=== PATIENT | female | born 1955 | race Caucasian/White ===

== ENCOUNTER 2017-01-24 12:36 | Observation (INO) | payer OTHER, MEDICAID ==
[~2017-01-24] VITALS: Ht 154.9 cm; Wt 62.8 kg
[~2017-01-24 12:36] MED LIST: ANT12.5 PO; APAP/HYDROCODON1 T13 PO; BACTRIM DS1 TAB PO; CLEOCIN HCL150 MG PO; CLINDAMYCIN HC300 MG PO; COL100 PO; COL250 PO; FERG PO; FUROSEMIDE80 MG PO; GLYBURIDE5 MG PO; HYDROCHLOROTHIA25 MG PO; HYDROCODONE/ACE1 TA2 PO; IBUPROFEN400 MG PO; JANUVIA100 M1 PO; LABETALOL HYDR100 MG PO; LAC PO; LEVAQUIN500 MG PO; LIPI10 PO; LIPITOR20 MG PO; NEPHRO-VITE VITA1 EA PO; NEU300 PO; NEURONTIN100 MG PO; NOR10 PO; NOR10T PO; NORCO1 TA2 PO; SIMVASTATIN20 M1 PO; VITAMIN D2 PO; VITAMIN D22000 I1 PO; VITC PO; ZOFRAN ODT8 MG PO
[2017-01-24 15:30] LABS: UA SPECIFIC GRAVITY 1.015 (1.005-1.035); microscopic required? YES; urine erythrocyte 1+ (NEGATIVE)
[2017-01-24] MEDS ORDERED: JANUVIA100 M1 PO (15:47)
[2017-01-24 15:51] LABS: BASOPHIL % 0.5 % (0-2); PLATELET COUNT 165 x10^3mcL (130-400)
[2017-01-24 15:52] LABS: RED CELL DISTRIBUTION WIDTH 15.2 % (11.5-14.5)
[2017-01-24 15:59] LABS: CARBON DIOXIDE 27.4 mmol/L (21-32); CK-MB 2.8 ng/mL (0-3.6)
[2017-01-24 16:00] LABS: ALBUMIN 1.3 g/dL (3.4-5.0); CREATININE SERUM 3.7 mg/dL (0.6-1.0); TOTAL PROTEIN, SERUM 6.1 g/dL (6.4-8.2)
[2017-01-24 16:01] LABS: BILIRUBIN TOTAL 0.2 mg/dL (0.20-1.00); CALCIUM 7.7 mg/dL (8.5-10.1)
[2017-01-24 16:59] VITALS: BP 161/69
[2017-01-24 17:04] VITALS: Ht 154.9 cm; Wt 62.8 kg
[2017-01-24 17:22] LABS: CHOLESTEROL/HDL RATIO 2.9
[2017-01-24 17:30] LABS: FREE T4 1.2 ng/dL (0.76-1.46); FREE THYROXINE INDEX 2.5 ug/dL (1.4-4.5); T4(THYROXINE) 8.1 ug/dL (4.7-13.3)
[2017-01-24 20:09] LABS: T3 TOTAL 0.93 ng/mL
[2017-01-24 21:53] VITALS: BP 162/68
[2017-01-25 05:58] VITALS: BP 124/57
[2017-01-25 06:37] LABS: CALCIUM 7.3 mg/dL (8.5-10.1); CARBON DIOXIDE 25.6 mmol/L (21-32); CREATININE SERUM 3.9 mg/dL (0.6-1.0); MAGNESIUM 1.9 mg/dL (1.8-2.4); PHOSPHOROUS 4.8 mg/dL (2.5-4.9); POTASSIUM SERUM 3.5 mmol/L (3.5-5.1)
[2017-01-25 06:56] LABS: BASOPHIL % 0.8 % (0-2); PLATELET COUNT 150 x10^3mcL (130-400)
[2017-01-25 09:45] VITALS: BP 149/56
[2017-01-25] MEDS ORDERED: NEU300 PO (10:11)
[2017-01-25] MEDS ORDERED: NORCO1 TA2 PO (10:11)
[2017-01-25 10:32] VITALS: BP 149/56
== END 2017-01-25 11:28 | disposition home or self-care (01) | DRG 299 ==
LOC: ED 12:36 → DU 15:31
PROVIDERS: Emergency Medicine; Internal Medicine Nephrology; ADMIT Family Medicine
DX: I70.235 Atherosclerosis of native arteries of right leg with ulceration of other part of foot (principal); I50.43 Acute on chronic combined systolic (congestive) and diastolic (congestive) heart failure; E43 Unspecified severe protein-calorie malnutrition; N18.6 End stage renal disease; N17.0 Acute kidney failure with tubular necrosis; I13.2 Hypertensive heart and chronic kidney disease with heart failure and with stage 5 chronic kidney disease, or end stage renal disease; L97.411 Non-pressure chronic ulcer of right heel and midfoot limited to breakdown of skin; L97.819 Non-pressure chronic ulcer of other part of right lower leg with unspecified severity; I83.018 Varicose veins of right lower extremity with ulcer other part of lower leg; I70.238 Atherosclerosis of native arteries of right leg with ulceration of other part of lower leg; L97.519 Non-pressure chronic ulcer of other part of right foot with unspecified severity; I87.8 Other specified disorders of veins; I36.1 Nonrheumatic tricuspid (valve) insufficiency; E87.6 Hypokalemia; E11.9 Type 2 diabetes mellitus without complications; Z68.26 Body mass index [BMI] 26.0-26.9, adult; Z99.2 Dependence on renal dialysis
CPT/HCPCS: 83880; 84439; G0378; G0480; J1170; J3480; J3490; J7030; Q0092

== ENCOUNTER 2017-01-29 22:09 | Emergency (ER) | payer OTHER, MEDICAID ==
[2017-01-30 00:07] VITALS: BP 139/63
== END 2017-01-30 00:07 | disposition home or self-care (01) ==
LOC: ED 22:09
DX: L97.519 Non-pressure chronic ulcer of other part of right foot with unspecified severity (principal); E78.00 Pure hypercholesterolemia, unspecified; G62.9 Polyneuropathy, unspecified; N28.9 Disorder of kidney and ureter, unspecified; I10 Essential (primary) hypertension; E11.9 Type 2 diabetes mellitus without complications

== ENCOUNTER 2017-02-07 18:01 | Emergency (ER) | payer OTHER, MEDICAID ==
[~2017-02-07] VITALS: Ht 152.4 cm; Wt 61.7 kg
[2017-02-07] MEDS ORDERED: KEFLEX250 M1 PO (20:26)
[2017-02-07 21:33] LABS: BASOPHIL % 0.2 % (0-2); PLATELET COUNT 261 x10^3mcL (130-400)
[2017-02-07 21:55] LABS: ALBUMIN 1.5 g/dL (3.4-5.0); BILIRUBIN TOTAL 0.23 mg/dL (0.20-1.00); C REACTIVE PROTEIN 7.2 mg/dL (<=0.9); CARBON DIOXIDE 26.8 mmol/L (21-32); POTASSIUM SERUM 3.2 mmol/L (3.5-5.1); TOTAL PROTEIN, SERUM 7.1 g/dL (6.4-8.2)
[2017-02-07 21:57] LABS: CREATININE SERUM 4.4 mg/dL (0.6-1.0)
[2017-02-07 22:01] LABS: CK-MB 2.4 ng/mL (0-3.6)
[2017-02-07 22:05] LABS: FREE T4 1.48 ng/dL (0.76-1.46); FREE THYROXINE INDEX 3.4 ug/dL (1.4-4.5); T4(THYROXINE) 9.8 ug/dL (4.7-13.3)
[2017-02-07 22:11] LABS: T3 TOTAL 1.02 ng/mL
[2017-02-07 22:25] VITALS: BP 165/76
[2017-02-08 00:09] LABS: ERYTHROCYTE SED RATE > 120 mm/hr (0-30)
== END 2017-02-07 22:25 | disposition home or self-care (01) ==
LOC: ED 18:01
PROVIDERS: Specialist
DX: L03.115 Cellulitis of right lower limb (principal); I73.9 Peripheral vascular disease, unspecified; E78.5 Hyperlipidemia, unspecified; I12.9 Hypertensive chronic kidney disease with stage 1 through stage 4 chronic kidney disease, or unspecified chronic kidney disease; E11.22 Type 2 diabetes mellitus with diabetic chronic kidney disease; N18.9 Chronic kidney disease, unspecified; G62.9 Polyneuropathy, unspecified
CPT/HCPCS: 83880; 84439; J1885; J2405; J3010; Q0092

== ENCOUNTER 2017-03-22 09:57 | Day surgery (SDC) | payer OTHER, MEDICAID ==
[2017-03-16 10:41] LABS: BILIRUBIN TOTAL 0.3 mg/dL (0.20-1.00); CARBON DIOXIDE 31.6 mmol/L (21-32); CREATININE SERUM 3.2 mg/dL (0.6-1.0); PHOSPHOROUS 3.4 mg/dL (2.5-4.9); POTASSIUM SERUM 3.1 mmol/L (3.5-5.1); TOTAL PROTEIN, SERUM 6.2 g/dL (6.4-8.2); URIC ACID 3.3 mg/dL (2.6-6.0)
[2017-03-16 10:43] LABS: ALBUMIN 1.4 g/dL (3.4-5.0)
[2017-03-16 11:01] LABS: BASOPHIL % 0.4 % (0-2); PLATELET COUNT 215 x10^3mcL (130-400)
[2017-03-16 11:05] LABS: RED CELL DISTRIBUTION WIDTH 15.7 % (11.5-14.5)
[~2017-03-22] VITALS: Ht 149.9 cm; Wt 76.7 kg
[~2017-03-22 09:57] MED LIST changes: +KEFLEX250 M1 PO
[2017-03-22 10:56] VITALS: BP 170/79
[2017-03-22 15:46] VITALS: BP 148/74
== END 2017-03-22 15:30 | disposition home or self-care (01) ==
LOC: DS 09:57 → OR 12:30 → DS 15:30
PROVIDERS: Surgery
PROC: 03180ZF Bypass Left Brachial Artery to Lower Arm Vein, Open Approach (ICD-10-PCS; principal; 2017-03-22 12:00)
DX: N18.6 End stage renal disease (principal); I10 Essential (primary) hypertension; E11.9 Type 2 diabetes mellitus without complications; I50.43 Acute on chronic combined systolic (congestive) and diastolic (congestive) heart failure; I07.1 Rheumatic tricuspid insufficiency; Z99.2 Dependence on renal dialysis
CPT/HCPCS: J0690; J1644; J2001; J3010

== ENCOUNTER → 2017-07-16 | Outpatient (CLI) | payer OTHER, MEDICAID ==
[~2017-07-16] VITALS: Ht 154.9 cm; Wt 57.1 kg
[2017-07-16 12:02] LABS: BASOPHIL % 0.2 % (0-2); PLATELET COUNT 205 x10^3mcL (130-400)
[2017-07-16 12:03] LABS: RED CELL DISTRIBUTION WIDTH 16.1 % (11.5-14.5)
[2017-07-16 12:55] LABS: BILIRUBIN TOTAL 0.2 mg/dL (0.20-1.00); CALCIUM 8.1 mg/dL (8.5-10.1); CARBON DIOXIDE 29.9 mmol/L (21-32); POTASSIUM SERUM 4.6 mmol/L (3.5-5.1)
[2017-07-16 14:48] LABS: ALBUMIN 1.9 g/dL (3.4-5.0); CREATININE SERUM 5.6 mg/dL (0.6-1.0)
== END | disposition home or self-care (01) ==
LOC: LB 11:30 → DS 07-19 12:30 → OR 07-19 12:30 → DS 08-09 09:04 → LB 08-09 11:00 → DS 08-09 11:00 → EDSTATUS 08-09 12:30 → DS 08-09 12:30 → LB 08-09 12:30
PROVIDERS: Surgery
DX: N18.6 End stage renal disease (principal)

== ENCOUNTER → 2017-08-09 | Day surgery (SDC) | payer OTHER, MEDICAID ==
[~2017-08-09] VITALS: Ht 154.9 cm; Wt 57.1 kg
[~2017-08-09] MED LIST changes: +NORCO1 TA1 PO; +NOVAPLUS ZOSYN50 M1 IV; +TIROSINT25 MC1 PO
[2017-08-09 10:20] VITALS: BP 134/63
[2017-08-09 10:39] LABS: BASOPHIL % 0.6 % (0-2); PLATELET COUNT 268 x10^3mcL (130-400); RED CELL DISTRIBUTION WIDTH 14.3 % (11.5-14.5)
[2017-08-09 10:53] LABS: BILIRUBIN TOTAL 0.21 mg/dL (0.20-1.00); CALCIUM 8.7 mg/dL (8.5-10.1); CARBON DIOXIDE 28.9 mmol/L (21-32); PHOSPHOROUS 5.5 mg/dL (2.5-4.9); POTASSIUM SERUM 3.8 mmol/L (3.5-5.1); TOTAL PROTEIN, SERUM 7.1 g/dL (6.4-8.2)
[2017-08-09 11:05] LABS: CREATININE SERUM 5.1 mg/dL (0.6-1.0)
[2017-08-09 14:23] VITALS: BP 123/60
== END | disposition home or self-care (01) ==
LOC: DS 09:31
PROVIDERS: Surgery
PROC: 03180ZD Bypass Left Brachial Artery to Upper Arm Vein, Open Approach (ICD-10-PCS; principal; 2017-08-09 11:00)
DX: I12.0 Hypertensive chronic kidney disease with stage 5 chronic kidney disease or end stage renal disease (principal); N18.6 End stage renal disease; E11.9 Type 2 diabetes mellitus without complications; E11.51 Type 2 diabetes mellitus with diabetic peripheral angiopathy without gangrene; E11.40 Type 2 diabetes mellitus with diabetic neuropathy, unspecified; E03.9 Hypothyroidism, unspecified
CPT/HCPCS: J0690; J1644; J1815; J2001; J2405; J2704; J3010; J3490; J7030

== ENCOUNTER 2017-08-18 12:15 | Inpatient (IN) | payer OTHER, MEDICAID ==
[~2017-08-18] VITALS: Ht 154.9 cm; Wt 55.8 kg
[~2017-08-18 12:15] MED LIST changes: -NORCO1 TA1 PO; -NOVAPLUS ZOSYN50 M1 IV; -TIROSINT25 MC1 PO
[2017-08-18 16:24] LABS: BASOPHIL % 0.1 % (0-2); PLATELET COUNT 195 x10^3mcL (130-400)
[2017-08-18 16:33] LABS: CALCIUM 8.1 mg/dL (8.5-10.1); CARBON DIOXIDE 30.7 mmol/L (21-32); CREATININE SERUM 2.9 mg/dL (0.6-1.0); POTASSIUM SERUM 3.3 mmol/L (3.5-5.1)
[2017-08-18 16:36] LABS: RED CELL DISTRIBUTION WIDTH 14.6 % (11.5-14.5)
[2017-08-18 16:38] LABS: BILIRUBIN TOTAL 0.2 mg/dL (0.20-1.00); TOTAL PROTEIN, SERUM 7.2 g/dL (6.4-8.2)
[2017-08-18 16:42] LABS: ALBUMIN 1.8 g/dL (3.4-5.0)
[2017-08-18] MEDS ORDERED: TIROSINT25 MC1 PO (16:55)
[2017-08-18 18:11] VITALS: BP 104/47
[2017-08-18 19:48] LABS: T3 TOTAL 0.55 ng/mL
[2017-08-18 22:08] VITALS: BP 125/46
[2017-08-18 22:24] LABS: FREE T4 1.41 ng/dL (0.76-1.46); T4(THYROXINE) 9.2 ug/dL (4.7-13.3)
[2017-08-19 02:42] LABS: CHOLESTEROL/HDL RATIO 3.5; MAGNESIUM 2.3 mg/dL (1.8-2.4); PHOSPHOROUS 3.2 mg/dL (2.5-4.9)
[2017-08-19 05:42] VITALS: BP 134/49
[2017-08-19 06:05] LABS: BASOPHIL % 0.3 % (0-2); PLATELET COUNT 192 x10^3mcL (130-400)
[2017-08-19 06:06] LABS: CARBON DIOXIDE 31.5 mmol/L (21-32); CREATININE SERUM 3.9 mg/dL (0.6-1.0); POTASSIUM SERUM 3.3 mmol/L (3.5-5.1)
[2017-08-19 06:30] LABS: RED CELL DISTRIBUTION WIDTH 14.8 % (11.5-14.5)
[2017-08-19 09:25] VITALS: BP 103/56
[2017-08-19 12:14] LABS: UA SPECIFIC GRAVITY 1.015 (1.005-1.035); microscopic required? YES; urine erythrocyte 1+ (NEGATIVE)
[2017-08-19 13:51] VITALS: BP 127/60
[2017-08-19 17:30] VITALS: BP 139/61
[2017-08-19 21:52] VITALS: BP 129/73
[2017-08-20 05:23] VITALS: BP 152/54
[2017-08-20 06:39] LABS: BASOPHIL % 0.1 % (0-2); PLATELET COUNT 184 x10^3mcL (130-400)
[2017-08-20 07:02] LABS: CARBON DIOXIDE 26.3 mmol/L (21-32); POTASSIUM SERUM 3.8 mmol/L (3.5-5.1)
[2017-08-20 07:04] LABS: CREATININE SERUM 5.5 mg/dL (0.6-1.0)
[2017-08-20 07:05] LABS: RED CELL DISTRIBUTION WIDTH 14.7 % (11.5-14.5)
[2017-08-20 10:04] VITALS: BP 126/62
[2017-08-20 13:52] VITALS: BP 145/63
[2017-08-20 17:59] VITALS: BP 119/52
[2017-08-20 20:30] VITALS: BP 120/56
[2017-08-21 05:32] VITALS: BP 137/57
[2017-08-21 06:24] LABS: CALCIUM 8.2 mg/dL (8.5-10.1); CARBON DIOXIDE 23.7 mmol/L (21-32); MAGNESIUM 2.4 mg/dL (1.8-2.4); PHOSPHOROUS 5.4 mg/dL (2.5-4.9); POTASSIUM SERUM 4.6 mmol/L (3.5-5.1)
[2017-08-21 06:26] LABS: CREATININE SERUM 6.6 mg/dL (0.6-1.0)
[2017-08-21 06:29] LABS: BASOPHIL % 0.3 % (0-2); PLATELET COUNT 207 x10^3mcL (130-400)
[2017-08-21 06:43] LABS: RED CELL DISTRIBUTION WIDTH 14.7 % (11.5-14.5)
[2017-08-21 08:45] VITALS: BP 136/56
[2017-08-21 13:54] LABS: rbc morphology (normal/abnorm) ABNORMAL (NORMAL)
[2017-08-21 14:56] LABS: PLATELET COUNT 194 x10^3mcL (130-400)
[2017-08-21 15:04] LABS: RED CELL DISTRIBUTION WIDTH 14.6 % (11.5-14.5)
[2017-08-21 16:01] LABS: BAND NEUTROPHIL 6 % (0-10); METAMYELOCTE 2 % (0-2); MONOCYTE 3 % (0-7); SEGMENTED NEUTROPHILS 71 % (37-75)
[2017-08-21 16:03] LABS: rbc morphology (normal/abnorm) ABNORMAL (NORMAL)
[2017-08-21 19:41] LABS: PLATELET COUNT 142 x10^3mcL (130-400)
[2017-08-21 19:44] LABS: RED CELL DISTRIBUTION WIDTH 19.1 % (11.5-14.5)
[2017-08-21 20:57] LABS: BAND NEUTROPHIL 5 % (0-10); METAMYELOCTE 3 % (0-2); MONOCYTE 3 % (0-7); SEGMENTED NEUTROPHILS 85 % (37-75)
[2017-08-21 20:59] LABS: rbc morphology (normal/abnorm) ABNORMAL (NORMAL)
[2017-08-21 21:00] LABS: PLATELET MORPHOLOGY LARGE PLATELET SEEN
[2017-08-21 21:32] VITALS: BP 111/59
[2017-08-22] VITALS (7 sets, daily range): BP systolic 105–149; BP diastolic 33–65; Ht 154.9 cm; Wt 55.8 kg
[2017-08-22 06:10] LABS: BASOPHIL % 0.1 % (0-2); PLATELET COUNT 164 x10^3mcL (130-400); RED CELL DISTRIBUTION WIDTH 19.5 % (11.5-14.5)
[2017-08-22 06:20] LABS: CALCIUM 7.3 mg/dL (8.5-10.1); CARBON DIOXIDE 29.9 mmol/L (21-32); CREATININE SERUM 3.6 mg/dL (0.6-1.0); MAGNESIUM 1.8 mg/dL (1.8-2.4); PHOSPHOROUS 4.8 mg/dL (2.5-4.9); POTASSIUM SERUM 3.7 mmol/L (3.5-5.1)
[2017-08-23 05:45] VITALS: BP 135/53
[2017-08-23 07:08] LABS: BASOPHIL % 0.1 % (0-2); PLATELET COUNT 201 x10^3mcL (130-400)
[2017-08-23 07:10] LABS: RED CELL DISTRIBUTION WIDTH 20.9 % (11.5-14.5)
[2017-08-23 07:21] LABS: CALCIUM 7.5 mg/dL (8.5-10.1); CARBON DIOXIDE 27.3 mmol/L (21-32); PHOSPHOROUS 5.3 mg/dL (2.5-4.9); POTASSIUM SERUM 3.6 mmol/L (3.5-5.1)
[2017-08-23 07:27] LABS: CREATININE SERUM 4.9 mg/dL (0.6-1.0)
[2017-08-23 07:51] LABS: ovalocyte/elliptocyte 1+; rbc morphology (normal/abnorm) ABNORMAL (NORMAL)
[2017-08-23 09:06] VITALS: BP 137/34
[2017-08-23 16:38] VITALS: BP 92/22
[2017-08-23 16:52] VITALS: BP 121/51
[2017-08-23 21:00] VITALS: BP 121/51
[2017-08-24 05:17] VITALS: BP 132/57
[2017-08-24 08:09] LABS: CALCIUM 7.4 mg/dL (8.5-10.1); CARBON DIOXIDE 30.5 mmol/L (21-32); MAGNESIUM 1.8 mg/dL (1.8-2.4); PHOSPHOROUS 4.3 mg/dL (2.5-4.9); POTASSIUM SERUM 3.7 mmol/L (3.5-5.1)
[2017-08-24 08:13] LABS: BASOPHIL % 0 % (0-2); PLATELET COUNT 201 x10^3mcL (130-400); RED CELL DISTRIBUTION WIDTH 19.9 % (11.5-14.5)
[2017-08-24 08:26] LABS: CREATININE SERUM 4.1 mg/dL (0.6-1.0)
[2017-08-24 10:15] VITALS: BP 109/53
[2017-08-24] MEDS ORDERED: NOVAPLUS ZOSYN50 M1 IV (14:24)
[2017-08-24] MEDS ORDERED: NORCO1 TA1 PO (14:24)
[2017-08-24 17:15] VITALS: BP 144/59
[2017-08-24 18:23] VITALS: BP 142/60
[2017-08-24 20:51] VITALS: BP 124/59
[2017-08-25 05:32] VITALS: BP 123/55
[2017-08-25 07:02] LABS: BASOPHIL % 0.4 % (0-2); PLATELET COUNT 235 x10^3mcL (130-400)
[2017-08-25 07:08] LABS: RED CELL DISTRIBUTION WIDTH 20.1 % (11.5-14.5)
[2017-08-25 07:09] LABS: rbc morphology (normal/abnorm) ABNORMAL (NORMAL)
[2017-08-25 07:17] LABS: CALCIUM 7.5 mg/dL (8.5-10.1); CARBON DIOXIDE 29.5 mmol/L (21-32); PHOSPHOROUS 4.6 mg/dL (2.5-4.9); POTASSIUM SERUM 4.2 mmol/L (3.5-5.1)
[2017-08-25 07:33] LABS: CREATININE SERUM 5.1 mg/dL (0.6-1.0)
[2017-08-25 08:45] VITALS: BP 160/70
[2017-08-25 09:45] VITALS: BP 117/56
[2017-08-25 16:47] VITALS: BP 123/52
[2017-08-25 20:52] VITALS: BP 133/54
[2017-08-26 06:20] LABS: BASOPHIL % 0.2 % (0-2); PLATELET COUNT 257 x10^3mcL (130-400)
[2017-08-26 06:41] VITALS: BP 149/66
[2017-08-26 07:10] LABS: RED CELL DISTRIBUTION WIDTH 20.1 % (11.5-14.5)
[2017-08-26 07:11] LABS: rbc morphology (normal/abnorm) ABNORMAL (NORMAL)
[2017-08-26] MEDS ORDERED: BAY PO (08:48)
[2017-08-26] MEDS ORDERED: PRO10I SQ (08:48)
[2017-08-26] MEDS ORDERED: HUMULIN R100 U/1 M1 SC (08:48)
[2017-08-26] MEDS ORDERED: LAC PO (08:48)
[2017-08-26] MEDS ORDERED: BG FS (08:48)
[2017-08-26] MEDS ORDERED: ZOFI IV (08:48)
[2017-08-26] MEDS ORDERED: APAP/HYDROCODON1 T13 PO (08:54)
[2017-08-26] MEDS ORDERED: ZOSYN2.25 GM/50 IV (08:54)
[2017-08-26 09:48] VITALS: BP 128/58
[2017-08-26 09:52] LABS: CARBON DIOXIDE 30.3 mmol/L (21-32); POTASSIUM SERUM 3.7 mmol/L (3.5-5.1)
[2017-08-26 10:20] VITALS: BP 128/58
== END 2017-08-26 11:30 | DRG 853 ==
LOC: ED 12:15 → IC 16:54 → DU 16:54 → MU 16:54 → DU 17:52 → MU 08-20 14:32 → IC 08-21 14:45 → DU 08-22 14:35 → MU 08-23 06:46
PROVIDERS: Emergency Medicine; Family Medicine; Family Medicine Sports Medicine; Nutritionist Nutrition, Education; ADMIT Student in an Organized Health Care Education/Training Program
PROC: 0QBL0ZZ Excision of Right Tarsal, Open Approach (ICD-10-PCS; principal; 2017-08-21 09:00)
DX: A41.9 Sepsis, unspecified organism (principal); E43 Unspecified severe protein-calorie malnutrition; N17.0 Acute kidney failure with tubular necrosis; N18.6 End stage renal disease; R57.1 Hypovolemic shock; L97.414 Non-pressure chronic ulcer of right heel and midfoot with necrosis of bone; L03.115 Cellulitis of right lower limb; D68.69 Other thrombophilia; E87.1 Hypo-osmolality and hyponatremia; I12.0 Hypertensive chronic kidney disease with stage 5 chronic kidney disease or end stage renal disease; M86.8X7 Other osteomyelitis, ankle and foot; E11.621 Type 2 diabetes mellitus with foot ulcer; R65.20 Severe sepsis without septic shock; E11.51 Type 2 diabetes mellitus with diabetic peripheral angiopathy without gangrene; E11.42 Type 2 diabetes mellitus with diabetic polyneuropathy; E11.65 Type 2 diabetes mellitus with hyperglycemia; Z99.2 Dependence on renal dialysis; E87.6 Hypokalemia; E83.39 Other disorders of phosphorus metabolism; E87.8 Other disorders of electrolyte and fluid balance, not elsewhere classified; E03.9 Hypothyroidism, unspecified; I36.1 Nonrheumatic tricuspid (valve) insufficiency; E78.1 Pure hyperglyceridemia; B37.3 Candidiasis of vulva and vagina; D63.1 Anemia in chronic kidney disease; I27.20 Pulmonary hypertension, unspecified
CPT/HCPCS: 83880; 84439; 87804; 94150; C1751; J0330; J0696; J0885-EC; J1170; J1642; J1644; J1815; J2250; J2270; J2405; J2543; J2704; J3010; J3370; J3490; J7030; J7040; J7050; P9016; P9045; Q0092

== ENCOUNTER 2017-10-11 09:12 | Day surgery (SDC) | payer OTHER, MEDICAID ==
[2017-10-08 10:46] LABS: BASOPHIL % 0.3 % (0-2); PLATELET COUNT 285 x10^3mcL (130-400)
[2017-10-08 11:03] LABS: BILIRUBIN TOTAL 0.3 mg/dL (0.20-1.00); CALCIUM 8.3 mg/dL (8.5-10.1); CARBON DIOXIDE 27.8 mmol/L (21-32); PHOSPHOROUS 7.1 mg/dL (2.5-4.9); POTASSIUM SERUM 4.3 mmol/L (3.5-5.1); TOTAL PROTEIN, SERUM 7.2 g/dL (6.4-8.2); URIC ACID 4.3 mg/dL (2.6-6.0)
[2017-10-08 11:11] LABS: ALBUMIN 1.9 g/dL (3.4-5.0); CREATININE SERUM 5.3 mg/dL (0.6-1.0)
[2017-10-08 11:41] LABS: rbc morphology (normal/abnorm) ABNORMAL (NORMAL); tear drop cell (dacryocyte) 1+
[~2017-10-11] VITALS: Ht 149.9 cm; Wt 59.0 kg
[~2017-10-11 09:12] MED LIST changes: +BAY PO; +BG FS; +HUMULIN R100 U/1 M1 SC; +NORCO1 TA1 PO; +NOVAPLUS ZOSYN50 M1 IV; +PRO10I SQ; +TIROSINT25 MC1 PO; +ZOFI IV; +ZOSYN2.25 GM/50 IV
[2017-10-11 10:38] VITALS: BP 142/62
[2017-10-11 15:39] VITALS: BP 152/58
== END 2017-10-11 15:35 ==
LOC: DS 09:12 → OR 12:30 → DS 15:35
PROVIDERS: Surgery
PROC: 05WY07Z Revision of Autologous Tissue Substitute in Upper Vein, Open Approach (ICD-10-PCS; principal; 2017-10-11 12:30)
DX: N18.6 End stage renal disease (principal)
CPT/HCPCS: J0690; J1170; J1644; J2001; J2704; J3010; J3490; J7030

== ENCOUNTER 2017-12-15 15:07 | Inpatient (IN) | payer OTHER ==
[~2017-12-15] VITALS: Ht 154.9 cm; Wt 62.0 kg
[2017-12-15 15:24] VITALS: Ht 154.9 cm; Wt 62.0 kg
[2017-12-15 16:47] LABS: BASOPHIL % 0.5 % (0-2); PLATELET COUNT 171 x10^3mcL (130-400)
[2017-12-15 17:09] LABS: CARBON DIOXIDE 30.5 mmol/L (21-32); CREATININE SERUM 2.9 mg/dL (0.6-1.0); POTASSIUM SERUM 3.5 mmol/L (3.5-5.1)
[2017-12-15 17:14] LABS: ALBUMIN 2.1 g/dL (3.4-5.0); BILIRUBIN TOTAL 0.16 mg/dL (0.20-1.00); T4(THYROXINE) 9.7 ug/dL (4.7-13.3); TOTAL PROTEIN, SERUM 6.4 g/dL (6.4-8.2)
[2017-12-15] MEDS ORDERED: SIMBRINZA8 ML OP (17:42)
[2017-12-15] MEDS ORDERED: NATURAL IRON65 MG PO (17:42)
[2017-12-15] MEDS ORDERED: NEPHRO-VITE VITA1 EA PO (17:42)
[2017-12-15] MEDS ORDERED: NOVOLIN 70/3010 ML (17:42)
[2017-12-15 17:44] LABS: RED CELL DISTRIBUTION WIDTH 14.8 % (11.5-14.5)
[2017-12-15] MEDS ORDERED: JANUVIA25 M1 (18:40)
[2017-12-15 18:53] LABS: T3 TOTAL 1.03 ng/mL
[2017-12-15 19:51] LABS: CHOLESTEROL/HDL RATIO 2.9; MAGNESIUM 2.1 mg/dL (1.8-2.4); PHOSPHOROUS 3.5 mg/dL (2.5-4.9)
[2017-12-15 19:57] LABS: FREE T4 1.1 ng/dL (0.76-1.46); FREE THYROXINE INDEX 3.2 ug/dL (1.4-4.5)
[2017-12-15 20:18] VITALS: BP 182/79
[2017-12-15 21:11] VITALS: BP 180/76
[2017-12-15 22:20] VITALS: BP 114/44
[2017-12-16] VITALS (7 sets, daily range): BP systolic 108–144; BP diastolic 46–83
[2017-12-16 06:59] LABS: BASOPHIL % 0.5 % (0-2); PLATELET COUNT 160 x10^3mcL (130-400)
[2017-12-16 07:09] LABS: RED CELL DISTRIBUTION WIDTH 15.1 % (11.5-14.5)
[2017-12-16 07:16] LABS: CALCIUM 7.8 mg/dL (8.5-10.1); CARBON DIOXIDE 26.8 mmol/L (21-32); CREATININE SERUM 3.9 mg/dL (0.6-1.0); POTASSIUM SERUM 3.6 mmol/L (3.5-5.1)
[2017-12-16 08:43] LABS: UA SPECIFIC GRAVITY 1.015 (1.005-1.035); microscopic required? YES; urine erythrocyte TRACE (NEGATIVE)
[2017-12-16 09:09] LABS: AMPHETAMINE QUAL UR NONE DETECTED (NEG <=1000)
[2017-12-17 05:06] VITALS: BP 146/47
[2017-12-17 06:14] LABS: BASOPHIL % 0.4 % (0-2); PLATELET COUNT 156 x10^3mcL (130-400)
[2017-12-17 06:25] LABS: RED CELL DISTRIBUTION WIDTH 15.2 % (11.5-14.5)
[2017-12-17 06:27] LABS: CALCIUM 7.7 mg/dL (8.5-10.1); CARBON DIOXIDE 25.3 mmol/L (21-32); POTASSIUM SERUM 3.9 mmol/L (3.5-5.1)
[2017-12-17 06:57] LABS: CREATININE SERUM 4.9 mg/dL (0.6-1.0)
[2017-12-17 09:10] VITALS: BP 151/49
[2017-12-17 13:22] VITALS: BP 140/43
[2017-12-17 16:17] VITALS: BP 179/53
[2017-12-17 20:00] VITALS: BP 145/49
[2017-12-17 22:23] VITALS: BP 150/54
[2017-12-18 06:38] VITALS: BP 141/49
[2017-12-18 07:43] LABS: CALCIUM 7.8 mg/dL (8.5-10.1); MAGNESIUM 2.4 mg/dL (1.8-2.4); PHOSPHOROUS 6.4 mg/dL (2.5-4.9); POTASSIUM SERUM 3.9 mmol/L (3.5-5.1)
[2017-12-18 07:45] LABS: BASOPHIL % 0.7 % (0-2); PLATELET COUNT 165 x10^3mcL (130-400); RED CELL DISTRIBUTION WIDTH 15.1 % (11.5-14.5)
[2017-12-18 07:54] LABS: CREATININE SERUM 6.1 mg/dL (0.6-1.0)
[2017-12-18 10:51] VITALS: BP 167/61
[2017-12-18 17:51] VITALS: BP 153/53
[2017-12-18 20:12] VITALS: BP 149/55
[2017-12-19 05:40] VITALS: BP 176/63
[2017-12-19 08:17] LABS: BASOPHIL % 0.8 % (0-2); PLATELET COUNT 167 x10^3mcL (130-400)
[2017-12-19 08:20] LABS: RED CELL DISTRIBUTION WIDTH 15.2 % (11.5-14.5)
[2017-12-19 10:04] VITALS: BP 140/53
[2017-12-19] MEDS ORDERED: ZOS2PM IV (10:58)
[2017-12-19] MEDS ORDERED: LAC PO (10:58)
[2017-12-19 11:14] LABS: CALCIUM 7.5 mg/dL (8.5-10.1); CARBON DIOXIDE 22.8 mmol/L (21-32); MAGNESIUM 2.2 mg/dL (1.8-2.4); PHOSPHOROUS 5.6 mg/dL (2.5-4.9); POTASSIUM SERUM 3.7 mmol/L (3.5-5.1)
[2017-12-19 11:22] LABS: CREATININE SERUM 4.6 mg/dL (0.6-1.0)
[2017-12-19 14:37] VITALS: BP 140/53; BP 149/52
[2017-12-19 18:16] VITALS: BP 149/52
== END 2017-12-19 21:14 | disposition home health service (06) | DRG 981 ==
LOC: ED 15:07 → DU 17:54 → MU 17:54 → DU 18:54 → MU 12-17 09:52
PROVIDERS: Emergency Medicine; Family Medicine
PROC: 0LBV0ZZ Excision of Right Foot Tendon, Open Approach (ICD-10-PCS; principal; 2017-12-16)
PROC: 02HV33Z Insertion of Infusion Device into Superior Vena Cava, Percutaneous Approach (ICD-10-PCS; 2017-12-16)
PROC: B548ZZA Ultrasonography of Superior Vena Cava, Guidance (ICD-10-PCS; 2017-12-16)
DX: E11.621 Type 2 diabetes mellitus with foot ulcer (principal); E43 Unspecified severe protein-calorie malnutrition; L97.419 Non-pressure chronic ulcer of right heel and midfoot with unspecified severity; L03.115 Cellulitis of right lower limb; I12.0 Hypertensive chronic kidney disease with stage 5 chronic kidney disease or end stage renal disease; M86.9 Osteomyelitis, unspecified; N18.6 End stage renal disease; N17.0 Acute kidney failure with tubular necrosis; E11.65 Type 2 diabetes mellitus with hyperglycemia; E11.628 Type 2 diabetes mellitus with other skin complications; B96.4 Proteus (mirabilis) (morganii) as the cause of diseases classified elsewhere; B37.3 Candidiasis of vulva and vagina; I16.0 Hypertensive urgency; E11.22 Type 2 diabetes mellitus with diabetic chronic kidney disease; E11.51 Type 2 diabetes mellitus with diabetic peripheral angiopathy without gangrene; E03.9 Hypothyroidism, unspecified; D63.8 Anemia in other chronic diseases classified elsewhere; Z68.22 Body mass index [BMI] 22.0-22.9, adult; Z99.2 Dependence on renal dialysis; Z79.4 Long term (current) use of insulin; Z79.891 Long term (current) use of opiate analgesic; Z91.19 Patient's noncompliance with other medical treatment and regimen
CPT/HCPCS: 83880; 84439; C1751; J0295; J0360; J1642; J2060; J2270; J2405; J2543; J3370; J3490; J7030; Q0092

== ENCOUNTER 2017-12-27 18:01 | Emergency (ER) | payer OTHER ==
[~2017-12-27] VITALS: Ht 157.5 cm; Wt 56.7 kg
[~2017-12-27 18:01] MED LIST changes: +JANUVIA25 M1; +NATURAL IRON65 MG PO; +NOVOLIN 70/3010 ML; +SIMBRINZA8 ML OP; +ZOS2PM IV
[2017-12-27 18:19] VITALS: BP 137/68; Ht 157.5 cm; Wt 56.7 kg
== END 2017-12-27 21:34 | disposition home or self-care (01) ==
LOC: ED 18:01
DX: Z13.89 Encounter for screening for other disorder (principal); E11.9 Type 2 diabetes mellitus without complications; E78.00 Pure hypercholesterolemia, unspecified; I12.0 Hypertensive chronic kidney disease with stage 5 chronic kidney disease or end stage renal disease; Z99.2 Dependence on renal dialysis; Z95.828 Presence of other vascular implants and grafts
CPT/HCPCS: Q0092

== ENCOUNTER 2018-01-21 09:12 | Emergency (ER) | payer OTHER ==
[~2018-01-21] VITALS: Ht 157.5 cm; Wt 56.0 kg
[2018-01-21 09:23] VITALS: Ht 157.5 cm; Wt 56.0 kg
[2018-01-21 11:08] VITALS: BP 164/68
== END 2018-01-21 11:08 | disposition home or self-care (01) ==
LOC: ED 09:12
DX: Z45.2 Encounter for adjustment and management of vascular access device (principal); I10 Essential (primary) hypertension; Z99.2 Dependence on renal dialysis; E78.00 Pure hypercholesterolemia, unspecified; E11.40 Type 2 diabetes mellitus with diabetic neuropathy, unspecified

== ENCOUNTER 2018-02-23 21:13 | Emergency (ER) | payer OTHER, MEDICAID ==
[~2018-02-23] VITALS: Ht 157.5 cm; Wt 55.0 kg
[2018-02-23 21:23] VITALS: Ht 157.5 cm; Wt 55.0 kg
[2018-02-23 23:09] LABS: PLATELET COUNT 186 x10^3mcL (130-400)
[2018-02-23 23:10] LABS: UA SPECIFIC GRAVITY 1.015 (1.005-1.035); microscopic required? YES; urine erythrocyte TRACE (NEGATIVE)
[2018-02-23 23:11] LABS: BASOPHIL % 0 % (0-2); RED CELL DISTRIBUTION WIDTH 16.3 % (11.5-14.5)
[2018-02-23 23:27] LABS: BILIRUBIN TOTAL 0.4 mg/dL (0.20-1.00); CARBON DIOXIDE 32.1 mmol/L (21-32); POTASSIUM SERUM 4.1 mmol/L (3.5-5.1); TOTAL PROTEIN, SERUM 6.7 g/dL (6.4-8.2)
[2018-02-23 23:28] LABS: ALBUMIN 2.3 g/dL (3.4-5.0)
[2018-02-23 23:29] LABS: CREATININE SERUM 4.5 mg/dL (0.6-1.0)
[2018-02-24] VITALS: BP 118/50
== END 2018-02-24 00:19 | disposition home or self-care (01) ==
LOC: ED 21:13
PROVIDERS: Emergency Medicine
DX: R50.9 Fever, unspecified (principal); R11.0 Nausea; E11.22 Type 2 diabetes mellitus with diabetic chronic kidney disease; I12.0 Hypertensive chronic kidney disease with stage 5 chronic kidney disease or end stage renal disease; N18.6 End stage renal disease; Z99.2 Dependence on renal dialysis; E78.00 Pure hypercholesterolemia, unspecified; G62.9 Polyneuropathy, unspecified
CPT/HCPCS: 36415; J0696; Q0092

== ENCOUNTER 2018-05-09 22:23 | Emergency (ER) | payer OTHER, MEDICAID ==
[~2018-05-09] VITALS: Ht 157.5 cm; Wt 65.0 kg
[2018-05-09 22:39] VITALS: Ht 157.5 cm; Wt 65.0 kg
[2018-05-10 00:13] VITALS: BP 142/67
== END 2018-05-10 00:04 | disposition home or self-care (01) ==
LOC: ED 22:23
DX: M79.671 Pain in right foot (principal); I10 Essential (primary) hypertension; E11.9 Type 2 diabetes mellitus without complications; E78.00 Pure hypercholesterolemia, unspecified
CPT/HCPCS: J1885; Q0092

== ENCOUNTER 2018-08-08 00:28 | Inpatient (IN) | payer OTHER, MEDICAID ==
[~2018-08-08] VITALS: Ht 157.5 cm; Wt 61.9 kg
[2018-08-08] VITALS (7 sets, daily range): BP systolic 110–172; BP diastolic 54–75
[2018-08-08 02:03] LABS: BILIRUBIN TOTAL 0.24 mg/dL (0.20-1.00); CALCIUM 7.4 mg/dL (8.5-10.1); CARBON DIOXIDE 28.3 mmol/L (21-32); POTASSIUM SERUM 4.4 mmol/L (3.5-5.1); TOTAL PROTEIN, SERUM 6.7 g/dL (6.4-8.2)
[2018-08-08 02:04] LABS: ALBUMIN 2.4 g/dL (3.4-5.0)
[2018-08-08 02:07] LABS: BASOPHIL % 0.5 % (0-2); RED CELL DISTRIBUTION WIDTH 14.3 % (11.5-14.5)
[2018-08-08 02:08] LABS: CREATININE SERUM 8.4 mg/dL (0.6-1.0)
[2018-08-08] MEDS ORDERED: VITAMIN D50000 I4 PO (02:08)
[2018-08-08] MEDS ORDERED: NOR10 PO (02:09)
[2018-08-08] MEDS ORDERED: NEPHRO-VITE VITA1 EA PO (02:09)
[2018-08-08] MEDS ORDERED: LIPI10 PO (02:09)
[2018-08-08] MEDS ORDERED: JANUVIA100 M1 (02:10)
[2018-08-08 02:11] LABS: PLATELET COUNT 157 x10^3mcL (130-400)
[2018-08-08 02:58] LABS: ERYTHROCYTE SED RATE 89 mm/hr (0-30)
[2018-08-08 03:03] LABS: CHOLESTEROL/HDL RATIO 3.9; MAGNESIUM 2.5 mg/dL (1.8-2.4)
[2018-08-08 03:46] LABS: T3 TOTAL 0.87 ng/mL
[2018-08-08 04:13] LABS: FREE T4 0.9 ng/dL (0.76-1.46); FREE THYROXINE INDEX 2.3 ug/dL (1.4-4.5); T4(THYROXINE) 7.2 ug/dL (4.7-13.3)
[2018-08-08 04:41] LABS: UA SPECIFIC GRAVITY 1.015 (1.005-1.035); microscopic required? YES; urine erythrocyte 1+ (NEGATIVE)
[2018-08-08 04:51] LABS: AMPHETAMINE QUAL UR NONE DETECTED (See below)
[2018-08-08] MEDS ORDERED: PHOS PO (15:10)
[2018-08-12 08:30] VITALS: Ht 157.5 cm; Wt 61.9 kg
== END 2018-08-08 18:21 | disposition home or self-care (01) | DRG 604 ==
LOC: ED 00:28 → MU 02:41
PROVIDERS: Emergency Medicine; Internal Medicine
DX: S90.32XA Contusion of left foot, initial encounter (principal); N18.6 End stage renal disease; N17.0 Acute kidney failure with tubular necrosis; E43 Unspecified severe protein-calorie malnutrition; I12.0 Hypertensive chronic kidney disease with stage 5 chronic kidney disease or end stage renal disease; E11.22 Type 2 diabetes mellitus with diabetic chronic kidney disease; E11.21 Type 2 diabetes mellitus with diabetic nephropathy; E83.41 Hypermagnesemia; D63.1 Anemia in chronic kidney disease; E83.39 Other disorders of phosphorus metabolism; E02 Subclinical iodine-deficiency hypothyroidism; Z99.3 Dependence on wheelchair; Z99.2 Dependence on renal dialysis; Z79.4 Long term (current) use of insulin; Z89.421 Acquired absence of other right toe(s); Z68.22 Body mass index [BMI] 22.0-22.9, adult; X58.XXXA Exposure to other specified factors, initial encounter; Y93.89 Activity, other specified; Y92.018 Other place in single-family (private) house as the place of occurrence of the external cause
CPT/HCPCS: 82962; 84439; J1885; J2270; J2550; J3370; J3490; J7030; P9047; Q0092; Q0162

== ENCOUNTER 2018-08-13 15:52 | Emergency (ER) | payer OTHER, MEDICAID ==
[~2018-08-13 15:52] MED LIST changes: +JANUVIA100 M1; +PHOS PO; +VITAMIN D50000 I4 PO
[2018-08-13 17:03] VITALS: BP 144/89
== END 2018-08-13 17:03 | disposition home or self-care (01) ==
LOC: ED 15:52
DX: S90.32XA Contusion of left foot, initial encounter (principal); E11.22 Type 2 diabetes mellitus with diabetic chronic kidney disease; I12.9 Hypertensive chronic kidney disease with stage 1 through stage 4 chronic kidney disease, or unspecified chronic kidney disease; N18.9 Chronic kidney disease, unspecified; E11.40 Type 2 diabetes mellitus with diabetic neuropathy, unspecified; E78.00 Pure hypercholesterolemia, unspecified; W22.8XXA Striking against or struck by other objects, initial encounter; Y93.89 Activity, other specified; Y92.89 Other specified places as the place of occurrence of the external cause; Y99.8 Other external cause status

== ENCOUNTER 2018-08-17 14:18 | Emergency (ER) | payer OTHER, MEDICAID ==
[~2018-08-17] VITALS: Ht 134.6 cm; Wt 50.8 kg
[2018-08-17 14:28] VITALS: Ht 134.6 cm; Wt 50.8 kg
[2018-08-17 15:17] LABS: BASOPHIL % 0.8 % (0-2)
[2018-08-17 15:21] LABS: CARBON DIOXIDE 34.7 mmol/L (21-32); PLATELET COUNT 111 x10^3mcL (130-400); RED CELL DISTRIBUTION WIDTH 14.8 % (11.5-14.5)
[2018-08-17 19:21] VITALS: BP 164/72
== END 2018-08-17 19:21 | disposition short-term general hospital (02) ==
LOC: ED 14:18
PROVIDERS: Emergency Medicine
DX: I77.1 Stricture of artery (principal); I10 Essential (primary) hypertension; E11.9 Type 2 diabetes mellitus without complications; E78.00 Pure hypercholesterolemia, unspecified; G62.9 Polyneuropathy, unspecified; Z99.2 Dependence on renal dialysis
CPT/HCPCS: J1644; J7030; Q0092

== ENCOUNTER 2018-08-31 12:09 | Emergency (ER) | payer OTHER, MEDICAID ==
[~2018-08-31] VITALS: Ht 157.5 cm; Wt 59.9 kg
[2018-08-31 12:20] VITALS: Ht 157.5 cm; Wt 59.9 kg
[2018-08-31 13:48] LABS: BASOPHIL % 0.5 % (0-2); PLATELET COUNT 306 x10^3mcL (130-400); RED CELL DISTRIBUTION WIDTH 15.1 % (11.5-14.5)
[2018-08-31 14:04] LABS: ALBUMIN 1.8 g/dL (3.4-5.0); BILIRUBIN TOTAL 0.19 mg/dL (0.20-1.00); CALCIUM 8.5 mg/dL (8.5-10.1); CREATININE SERUM 3.3 mg/dL (0.6-1.0); POTASSIUM SERUM 3.3 mmol/L (3.5-5.1); T4(THYROXINE) 7.6 ug/dL (4.7-13.3); TOTAL PROTEIN, SERUM 7.4 g/dL (6.4-8.2)
[2018-08-31 16:29] VITALS: BP 142/64
== END 2018-08-31 16:29 | disposition short-term general hospital (02) ==
LOC: ED 12:09
PROVIDERS: Emergency Medicine
DX: E11.52 Type 2 diabetes mellitus with diabetic peripheral angiopathy with gangrene (principal); I96 Gangrene, not elsewhere classified; E11.22 Type 2 diabetes mellitus with diabetic chronic kidney disease; I12.0 Hypertensive chronic kidney disease with stage 5 chronic kidney disease or end stage renal disease; N18.6 End stage renal disease; E78.00 Pure hypercholesterolemia, unspecified; D64.9 Anemia, unspecified; E11.610 Type 2 diabetes mellitus with diabetic neuropathic arthropathy; Z99.2 Dependence on renal dialysis
CPT/HCPCS: 36600; 82962; 90715; J0295; J3370; J3490; J7030; J7050; Q0092

== ENCOUNTER 2018-11-18 19:38 | Inpatient (IN) | payer OTHER, MEDICAID ==
[~2018-11-18] VITALS: Ht 152.4 cm; Wt 49.5 kg
[2018-11-18 21:49] LABS: PLATELET COUNT 195 x10^3mcL (130-400); RED CELL DISTRIBUTION WIDTH 16.6 % (11.5-14.5)
[2018-11-18 21:52] LABS: BILIRUBIN TOTAL 0.27 mg/dL (0.20-1.00); POTASSIUM SERUM 5.3 mmol/L (3.5-5.1); TOTAL PROTEIN, SERUM 6.4 g/dL (6.4-8.2)
[2018-11-18 21:54] LABS: BAND NEUTROPHIL 3 % (0-10); MONOCYTE 2 % (0-7); SEGMENTED NEUTROPHILS 92 % (37-75)
[2018-11-18 21:55] LABS: BASOPHIL 0 % (0-2); CARBON DIOXIDE 7.6 mmol/L (21-32); CREATININE SERUM 14.7 mg/dL (0.6-1.0); rbc morphology (normal/abnorm) ABNORMAL (NORMAL)
[2018-11-18] MEDS ORDERED: ACETAMINOPHEN-H1 TA1 PO (23:29)
[2018-11-18] MEDS ORDERED: RENVELA800 M1 PO (23:30)
[2018-11-18] MEDS ORDERED: GABAPENTIN100 M2 PO (23:31)
[2018-11-18] MEDS ORDERED: ASPIR 8181 MG PO (23:31)
[2018-11-18] MEDS ORDERED: CARVEDILOL3.125 M1 PO (23:32)
[2018-11-18] MEDS ORDERED: CLOPIDOGREL75 M1 PO (23:33)
[2018-11-18] MEDS ORDERED: ZESTRIL5 MG PO (23:33)
[2018-11-18] MEDS ORDERED: GLIPIZIDE5 M3 PO (23:34)
[2018-11-19] VITALS (7 sets, daily range): BP systolic 118–150; BP diastolic 61–83
[2018-11-19 00:01] LABS: T3 TOTAL 0.69 ng/mL
[2018-11-19 00:06] LABS: FREE T4 0.89 ng/dL (0.76-1.46); FREE THYROXINE INDEX 2.2 ug/dL (1.4-4.5); T4(THYROXINE) 6.7 ug/dL (4.7-13.3)
[2018-11-19 00:07] LABS: MAGNESIUM 2.8 mg/dL (1.8-2.4)
[2018-11-19 00:08] LABS: CHOLESTEROL/HDL RATIO 6.2
[2018-11-19 00:13] LABS: PHOSPHOROUS 10.6 mg/dL (2.5-4.9)
[2018-11-19 06:28] LABS: CALCIUM 7.1 mg/dL (8.5-10.1); MAGNESIUM 2.6 mg/dL (1.8-2.4); POTASSIUM SERUM 4.4 mmol/L (3.5-5.1)
[2018-11-19 07:24] LABS: CREATININE SERUM 15.1 mg/dL (0.6-1.0)
[2018-11-19 07:25] LABS: CARBON DIOXIDE 7.1 mmol/L (21-32)
[2018-11-19 08:08] LABS: PLATELET COUNT 165 x10^3mcL (130-400)
[2018-11-19 08:14] LABS: BASOPHIL % 0 % (0-2); RED CELL DISTRIBUTION WIDTH 16.8 % (11.5-14.5)
[2018-11-19 08:28] LABS: PHOSPHOROUS 10.9 mg/dL (2.5-4.9)
[2018-11-19 11:37] LABS: acanthocyte (spur cell) 1+; rbc morphology (normal/abnorm) ABNORMAL (NORMAL)
[2018-11-20 04:42] VITALS: BP 143/57
[2018-11-20 06:41] LABS: AMPHETAMINE QUAL UR NONE DETECTED (See below)
[2018-11-20 07:17] LABS: CALCIUM 6.9 mg/dL (8.5-10.1); MAGNESIUM 2.5 mg/dL (1.8-2.4); POTASSIUM SERUM 3.8 mmol/L (3.5-5.1)
[2018-11-20 07:53] LABS: CARBON DIOXIDE 7.9 mmol/L (21-32); CREATININE SERUM 14.4 mg/dL (0.6-1.0)
[2018-11-20 07:54] LABS: PHOSPHOROUS 11.1 mg/dL (2.5-4.9)
[2018-11-20 08:17] LABS: BASOPHIL % 0.2 % (0-2); PLATELET COUNT 137 x10^3mcL (130-400)
[2018-11-20 08:23] LABS: RED CELL DISTRIBUTION WIDTH 16.9 % (11.5-14.5)
[2018-11-20 09:31] VITALS: BP 142/55
[2018-11-20 13:27] LABS: rbc morphology (normal/abnorm) ABNORMAL (NORMAL)
[2018-11-20 13:54] VITALS: BP 125/52
[2018-11-20 20:59] VITALS: BP 141/59
[2018-11-21 01:21] VITALS: BP 213/75
[2018-11-21 02:59] VITALS: BP 185/55
[2018-11-21 05:50] VITALS: BP 180/66
[2018-11-21 06:20] LABS: BASOPHIL % 0.3 % (0-2); PLATELET COUNT 131 x10^3mcL (130-400)
[2018-11-21 06:30] LABS: CALCIUM 7.1 mg/dL (8.5-10.1); CARBON DIOXIDE 20.5 mmol/L (21-32); MAGNESIUM 1.8 mg/dL (1.8-2.4); PHOSPHOROUS 6.3 mg/dL (2.5-4.9)
[2018-11-21 07:02] LABS: RED CELL DISTRIBUTION WIDTH 15.2 % (11.5-14.5)
[2018-11-21 07:17] LABS: CREATININE SERUM 8.7 mg/dL (0.6-1.0); POTASSIUM SERUM 2.8 mmol/L (3.5-5.1)
[2018-11-21 08:45] VITALS: BP 149/57
[2018-11-21 19:11] VITALS: BP 184/64
[2018-11-21 20:41] VITALS: BP 165/56
[2018-11-22] VITALS (7 sets, daily range): BP systolic 127–174; BP diastolic 48–82
[2018-11-22 06:40] LABS: BASOPHIL % 0.4 % (0-2)
[2018-11-22 06:53] LABS: PLATELET COUNT 123 x10^3mcL (130-400); RED CELL DISTRIBUTION WIDTH 15.9 % (11.5-14.5)
[2018-11-22 06:59] LABS: CALCIUM 7.1 mg/dL (8.5-10.1); CARBON DIOXIDE 26.6 mmol/L (21-32); MAGNESIUM 1.7 mg/dL (1.8-2.4); PHOSPHOROUS 4.2 mg/dL (2.5-4.9)
[2018-11-22 07:10] LABS: CREATININE SERUM 5.2 mg/dL (0.6-1.0)
[2018-11-23 05:26] VITALS: BP 153/53
[2018-11-23 07:00] LABS: BASOPHIL % 0.6 % (0-2)
[2018-11-23 07:16] LABS: CALCIUM 7.2 mg/dL (8.5-10.1); CARBON DIOXIDE 25.1 mmol/L (21-32); MAGNESIUM 1.9 mg/dL (1.8-2.4); PHOSPHOROUS 5.4 mg/dL (2.5-4.9); POTASSIUM SERUM 3.8 mmol/L (3.5-5.1)
[2018-11-23 07:18] LABS: CREATININE SERUM 6.4 mg/dL (0.6-1.0)
[2018-11-23 08:10] VITALS: BP 167/54
[2018-11-23 08:48] LABS: PLATELET COUNT 118 x10^3mcL (130-400); RED CELL DISTRIBUTION WIDTH 16.1 % (11.5-14.5)
[2018-11-23 11:39] VITALS: BP 130/64
[2018-11-23 18:18] VITALS: BP 156/62
[2018-11-23 21:13] VITALS: BP 172/59
[2018-11-24 05:43] VITALS: BP 176/69
[2018-11-24 06:18] LABS: CALCIUM 7.4 mg/dL (8.5-10.1); MAGNESIUM 1.6 mg/dL (1.8-2.4); PHOSPHOROUS 3.7 mg/dL (2.5-4.9); POTASSIUM SERUM 3.4 mmol/L (3.5-5.1)
[2018-11-24 06:24] LABS: CREATININE SERUM 4.5 mg/dL (0.6-1.0)
[2018-11-24 07:43] LABS: BASOPHIL % 0.4 % (0-2); PLATELET COUNT 131 x10^3mcL (130-400); RED CELL DISTRIBUTION WIDTH 15.6 % (11.5-14.5)
[2018-11-24 07:46] VITALS: BP 170/69
[2018-11-24 12:06] VITALS: BP 155/62
[2018-11-24 16:21] VITALS: BP 161/64
[2018-11-24 20:27] VITALS: BP 152/64
[2018-11-25 05:52] VITALS: BP 157/89
[2018-11-25 06:24] LABS: BASOPHIL % 0.7 % (0-2); PLATELET COUNT 148 x10^3mcL (130-400)
[2018-11-25 06:41] LABS: CALCIUM 7.3 mg/dL (8.5-10.1); CARBON DIOXIDE 29.3 mmol/L (21-32); MAGNESIUM 1.8 mg/dL (1.8-2.4); PHOSPHOROUS 4.6 mg/dL (2.5-4.9); POTASSIUM SERUM 3.8 mmol/L (3.5-5.1)
[2018-11-25 06:44] LABS: CREATININE SERUM 5.8 mg/dL (0.6-1.0)
[2018-11-25 06:49] LABS: RED CELL DISTRIBUTION WIDTH 15.7 % (11.5-14.5)
[2018-11-25 08:49] VITALS: BP 148/56
[2018-11-25 14:21] VITALS: BP 135/63
[2018-11-25 17:36] VITALS: BP 147/56
[2018-11-25 21:20] VITALS: BP 152/64
[2018-11-26 05:21] VITALS: BP 167/65
[2018-11-26 06:31] LABS: CARBON DIOXIDE 26.6 mmol/L (21-32); PHOSPHOROUS 6.1 mg/dL (2.5-4.9); POTASSIUM SERUM 4.2 mmol/L (3.5-5.1)
[2018-11-26 09:14] VITALS: BP 102/55
[2018-11-26 09:38] LABS: BASOPHIL % 0.6 % (0-2); PLATELET COUNT 142 x10^3mcL (130-400)
[2018-11-26 09:40] LABS: RED CELL DISTRIBUTION WIDTH 15.8 % (11.5-14.5)
[2018-11-26] MEDS ORDERED: MOT800 PO (14:28)
[2018-11-26 15:02] VITALS: BP 96/51
== END 2018-11-26 15:47 | disposition home or self-care (01) | DRG 291 ==
LOC: ED 19:38 → DU 22:50
PROVIDERS: Emergency Medicine; Internal Medicine; ADMIT Family Medicine
PROC: 5A1D70Z Performance of Urinary Filtration, Intermittent, Less than 6 Hours Per Day (ICD-10-PCS; 2018-11-19)
PROC: 30233N1 Transfusion of Nonautologous Red Blood Cells into Peripheral Vein, Percutaneous Approach (ICD-10-PCS; principal; 2018-11-20)
PROC: 05HM33Z Insertion of Infusion Device into Right Internal Jugular Vein, Percutaneous Approach (ICD-10-PCS; 2018-11-20)
PROC: B543ZZA Ultrasonography of Right Jugular Veins, Guidance (ICD-10-PCS; 2018-11-20)
PROC: B31J1ZZ Fluoroscopy of Left Upper Extremity Arteries using Low Osmolar Contrast (ICD-10-PCS; 2018-11-21)
PROC: 02HV33Z Insertion of Infusion Device into Superior Vena Cava, Percutaneous Approach (ICD-10-PCS; 2018-11-25)
PROC: B41D1ZZ Fluoroscopy of Aorta and Bilateral Lower Extremity Arteries using Low Osmolar Contrast (ICD-10-PCS; 2018-11-25)
PROC: B548ZZA Ultrasonography of Superior Vena Cava, Guidance (ICD-10-PCS; 2018-11-25)
DX: I13.2 Hypertensive heart and chronic kidney disease with heart failure and with stage 5 chronic kidney disease, or end stage renal disease (principal); I50.43 Acute on chronic combined systolic (congestive) and diastolic (congestive) heart failure; N18.6 End stage renal disease; E43 Unspecified severe protein-calorie malnutrition; E87.2 Acidosis; E11.52 Type 2 diabetes mellitus with diabetic peripheral angiopathy with gangrene; N39.0 Urinary tract infection, site not specified; B96.29 Other Escherichia coli [E. coli] as the cause of diseases classified elsewhere; E11.22 Type 2 diabetes mellitus with diabetic chronic kidney disease; E11.42 Type 2 diabetes mellitus with diabetic polyneuropathy; E11.65 Type 2 diabetes mellitus with hyperglycemia; E83.39 Other disorders of phosphorus metabolism; E83.41 Hypermagnesemia; E87.5 Hyperkalemia; D63.1 Anemia in chronic kidney disease; E78.5 Hyperlipidemia, unspecified; E03.9 Hypothyroidism, unspecified; Z68.21 Body mass index [BMI] 21.0-21.9, adult; Z99.2 Dependence on renal dialysis; Z99.3 Dependence on wheelchair; Z89.421 Acquired absence of other right toe(s); Z95.0 Presence of cardiac pacemaker; Z79.4 Long term (current) use of insulin; Z79.84 Long term (current) use of oral hypoglycemic drugs
CPT/HCPCS: 36600; 76001; 82962; 83880; 84439; 87804; 97110-GP; 97112-GP; 97530-GP; A4301; C1760; C1769; C1884; C1887; C1894; J0696; J0885-EC; J1200; J1642; J1644; J1940; J2001; J2060; J2150; J2250; J2270; J2310; J2405; J2543; J3010; J3480; J3490; J7030; J7040; J7050; P9016; Q0092; Q0163; Q9967

== ENCOUNTER 2018-12-01 12:20 | Emergency (ER) | payer OTHER, MEDICAID ==
[~2018-12-01 12:20] MED LIST changes: +ACETAMINOPHEN-H1 TA1 PO; +ASPIR 8181 MG PO; +CARVEDILOL3.125 M1 PO; +CLOPIDOGREL75 M1 PO; +GABAPENTIN100 M2 PO; +GLIPIZIDE5 M3 PO; +MOT800 PO; +RENVELA800 M1 PO; +ZESTRIL5 MG PO
[2018-12-01 12:47] VITALS: Ht 157.5 cm
[2018-12-01 13:34] LABS: CALCIUM 7.3 mg/dL (8.5-10.1); CARBON DIOXIDE 27.3 mmol/L (21-32); CREATININE SERUM 3.9 mg/dL (0.6-1.0); POTASSIUM SERUM 3.8 mmol/L (3.5-5.1)
[2018-12-01 13:40] LABS: ALBUMIN 1.7 g/dL (3.4-5.0); BILIRUBIN TOTAL 0.3 mg/dL (0.20-1.00); TOTAL PROTEIN, SERUM 5.7 g/dL (6.4-8.2)
[2018-12-01 13:48] LABS: BASOPHIL % 0.4 % (0-2); PLATELET COUNT 146 x10^3mcL (130-400); RED CELL DISTRIBUTION WIDTH 18.2 % (11.5-14.5)
[2018-12-01 14:28] VITALS: BP 145/66
== END 2018-12-01 14:28 | disposition home or self-care (01) ==
LOC: ED 12:20
PROVIDERS: Emergency Medicine
DX: E11.22 Type 2 diabetes mellitus with diabetic chronic kidney disease (principal); I12.0 Hypertensive chronic kidney disease with stage 5 chronic kidney disease or end stage renal disease; N18.6 End stage renal disease; D63.1 Anemia in chronic kidney disease; E11.65 Type 2 diabetes mellitus with hyperglycemia; E78.00 Pure hypercholesterolemia, unspecified; E11.40 Type 2 diabetes mellitus with diabetic neuropathy, unspecified; Z99.2 Dependence on renal dialysis; Z98.890 Other specified postprocedural states
CPT/HCPCS: 36415; Q0092

== ENCOUNTER 2018-12-10 21:20 | Emergency (ER) | payer OTHER, MEDICAID ==
[2018-12-10 22:33] VITALS: Ht 157.5 cm
[2018-12-11 00:11] LABS: BASOPHIL % 1.1 % (0-2); PLATELET COUNT 309 x10^3mcL (130-400)
[2018-12-11 00:12] LABS: RED CELL DISTRIBUTION WIDTH 19.9 % (11.5-14.5)
[2018-12-11 00:28] LABS: CALCIUM 8.2 mg/dL (8.5-10.1); CREATININE SERUM 3.4 mg/dL (0.6-1.0); POTASSIUM SERUM 3.9 mmol/L (3.5-5.1)
[2018-12-11 00:33] LABS: BILIRUBIN TOTAL 0.2 mg/dL (0.20-1.00); TOTAL PROTEIN, SERUM 6.6 g/dL (6.4-8.2)
[2018-12-11 01:08] VITALS: BP 148/60
== END 2018-12-11 01:08 | disposition home or self-care (01) ==
LOC: ED 21:20
PROVIDERS: Emergency Medicine
DX: I96 Gangrene, not elsewhere classified (principal); M79.672 Pain in left foot; E11.52 Type 2 diabetes mellitus with diabetic peripheral angiopathy with gangrene; G89.29 Other chronic pain; I10 Essential (primary) hypertension; E78.00 Pure hypercholesterolemia, unspecified; E11.40 Type 2 diabetes mellitus with diabetic neuropathy, unspecified; Z98.890 Other specified postprocedural states
CPT/HCPCS: J3010

== ENCOUNTER 2018-12-24 12:25 | Inpatient (IN) | payer OTHER, MEDICAID ==
[~2018-12-24] VITALS: Ht 157.5 cm; Wt 61.8 kg
[2018-12-24 12:38] VITALS: Ht 157.5 cm; Wt 61.8 kg
--- NOTE | 2018-12-24 12:40 | NUR ---
PT BACK TO LOBBY WITH DAUGHTER TO AWAIT FOR ROOM. PT AAOX4, RESPS E/U, SKIN IS PINK, WARM AND DRY. PT SPEAKING IN FULL SENTANCES. PT INSTRUCTED TO RING DOOR WEBB IF ANYTHING CHANGES.
--- NOTE | 2018-12-24 13:51 | NUR ---
PT BIB DAUGHTER C/O SHARP LEFT HEEL PAIN PT ALSO HAS ULCER TO HEEL WITH BLACK TISSUE TO THE EDGES ALSO C/O BLACK 3RD TOE TO LEFT FOOT PT STS PAIN 08/21 DENIES TRAUMA OR INJURY PT IS DIABETIC, HTN HYPERLIPODEMIA AND A PACEMAKER PT ALSO HAS HAD LL TOES AMPUTATED ON RIGHT FOOT +PM -SC PT ABLE TO MOVE TOES FULL RANGE OF MOTION PER DAUGHTER PT WAS SUPPOSE TO HAVE "SURGERY TO DEBRIDE AND AMPUTATE THE BLACK TOE" IN NOVEMBER BUT HAS BEEN UNABLE TO SCHEDULE SURGERY.
--- NOTE | 2018-12-24 14:07 | NUR ---
PT BIB DAUGHTER C/O SHARP LEFT HEEL PAIN PT ALSO SKIN NOT INTACT ON LEFT HEAL BLACK TISSUE NOTED TO THE EDGES ALSO C/O BLACK 3RD TOE TO LEFT FOOT PT STS PAIN 08/21 DENIES TRAUMA OR INJURY PT IS DIABETIC, HTN HYPERLIPODEMIA AND A PACEMAKER PT ALSO HAS HAD LL TOES AMPUTATED ON RIGHT FOOT +PM -SC PT ABLE TO MOVE TOES FULL RANGE OF MOTION PER DAUGHTER PT WAS SUPPOSE TO HAVE "SURGERY TO DEBRIDE AND AMPUTATE THE BLACK TOE" IN NOVEMBER BUT HAS BEEN UNABLE TO SCHEDULE SURGERY.
[2018-12-24 14:43] LABS: BASOPHIL % 0.4 % (0-2); PLATELET COUNT 224 x10^3mcL (130-400)
[2018-12-24 14:46] LABS: RED CELL DISTRIBUTION WIDTH 19.2 % (11.5-14.5)
[2018-12-24 15:13] LABS: BILIRUBIN TOTAL 0.2 mg/dL (0.20-1.00); CALCIUM 7.6 mg/dL (8.5-10.1); CARBON DIOXIDE 22.8 mmol/L (21-32); T4(THYROXINE) 9.9 ug/dL (4.7-13.3); TOTAL PROTEIN, SERUM 7.8 g/dL (6.4-8.2)
[2018-12-24 15:17] LABS: ALBUMIN 2.3 g/dL (3.4-5.0)
[2018-12-24 15:18] LABS: CREATININE SERUM 7.2 mg/dL (0.6-1.0)
[2018-12-24 16:15] LABS: MAGNESIUM 2.5 mg/dL (1.8-2.4)
[2018-12-24 16:19] LABS: CHOLESTEROL/HDL RATIO 5.2
[2018-12-24 16:32] LABS: UA SPECIFIC GRAVITY 1.015 (1.005-1.035); microscopic required? YES; urine erythrocyte 1+ (NEGATIVE)
[2018-12-24] MEDS ORDERED: TOPROL XL25 MG PO (16:40)
[2018-12-24] MEDS ORDERED: MUCINEX600 MG PO (16:41)
[2018-12-24] MEDS ORDERED: PREDNISONE10 MG PO (16:41)
[2018-12-24] MEDS ORDERED: OMEPRAZOLE40 M1 PO (16:41)
[2018-12-24] MEDS ORDERED: PREMARIN0.625 MG PO (16:41)
[2018-12-24 16:42] LABS: AMPHETAMINE QUAL UR NONE DETECTED (See below)
[2018-12-24] MEDS ORDERED: PROAIR RES117 MCG/Ac IH (16:42)
[2018-12-24] MEDS ORDERED: RANITIDINE HCL300 M3 PO (16:42)
[2018-12-24] MEDS ORDERED: CRESTOR10 M1 PO (16:42)
[2018-12-24] MEDS ORDERED: TYLENOL WITH CO1 TA2 PO (16:43)
[2018-12-24] MEDS ORDERED: SPACE CHAMBER1 EACH MC (16:43)
[2018-12-24] MEDS ORDERED: AMOXICILLIN500 M1 (16:47)
--- NOTE | 2018-12-24 16:48 | NUR ---
GAVE REPORT TO JESSE ALSO COMMUNICATED THAT PT PICTURES OF LEFT FOOT WILL BE SENT WITH THE PATIENT ALSO NOTED THAT PT HAS ALL HER TOES AMPUTATED LAST YEAR ON HER RIGHT FOOT ALSO COMMUNICATED THAT PATIENT ATTENDS DIALYSIS 3 DAYS A WEEK SUN. SUN, SUNDAY WHICH SHE ATTENDED TODAY BUT WAS ONLY ABLE TO FINISH 2 HOURS OF IT
--- NOTE | 2018-12-24 17:15 | NUR ---
DIABETIC FOOD TRAY DELIVERED TO PT PT IS LAYING IN BED WITH RIGHT FOOT ELEVATED ON TOWELS NO DISTRESS NOTED RESPIRATIONS EVEN AND UNLABORED WILL CONTINUE TO MONITOR UNTIL PT CAN BE ADMITTED TO [facility] TELE
[2018-12-24 18:49] VITALS: BP 207/89
--- NOTE | 2018-12-24 19:19 | NUR ---
RECEIVED PT FROM ER. PT ADMIT FOR LEFT FORTH TOE GANGRENE, PT IS A/O X4, VERBAL RESPONSIVE, LUNG SOUND CLEAR BILATERAL, NO COUGH, NO SOB, PT IS ON TELE 1, ST. DENY ANY CHEST PAIN OR DISCOMFORT, BOWEL SOUND PRESENT ALL 4 QUADRANTS, NO DISTENTION, NO TENDER. PT HAS RIGHT FOOT AMPUTATION, LEFT FOOT FORTH TOE BLACK TISSUE, AND LEFT HEEL BLACK TISSUE, WARDROBE SPECIALIST AT BEDSIDE PROVIDE THE TREATMENT. LEFT FOOT COVERED WITH DRY DRESSING AT THIS MOMENT. PT HAS AV SHUNT AT LEFT UPPER ARM, BLAKE CATH AT RIGHT UPPER CHEST. ALL ADLS ASSIST, ALL NEED MET, CALL LIGHT IN REACH, WILL CONTINUE TO MONITOR.
[2018-12-24 20:54] VITALS: BP 199/72
--- NOTE | 2018-12-24 20:58 | NUR ---
HEEL BOOT PROVIDED TO PATIENT. FAMILY BY BEDSIDE AT THIS TIME. SECURE DRESSING TO LEFT FOOT. PATIENT UNABLE TO RECALL HOW MUCH WAS REMOVED DURING DIALYSIS TODAY AND STATED THAT SHE WAS UNABLE TO COMPLETE THE FULL 3 HOURS OF DIALYSIS DUE TO SEVERE PAIN IN HER LEFT FOOT AND HEEL. PAIN MEDICATION ALSO PROVIDED.
--- NOTE | 2018-12-24 21:10 | NUR ---
PER DR. CHADWICK WILL WAIT FOR NEPHROLOGY TO SEE PATIENT FOR CONTINUED HEMODIALYSIS ORDERS.
--- NOTE | 2018-12-25 01:32 | NUR ---
PATIENT QUIETLY RESTING IN BED AT THIS TIME. EXPLAINED TO PATIENT THAT SHE IS TO REMAIN NPO FOR POSSIBLE PROCEDURE IN THE MORNING. PATIENT VERBALIZED UNDERSTANDING. PATIENT VERBALIZED RELIEF FROM PAIN MEDICATION GIVEN, DILAUDID.
[2018-12-25 05:16] VITALS: BP 161/69
[2018-12-25 06:02] LABS: BASOPHIL % 0.4 % (0-2); PLATELET COUNT 179 x10^3mcL (130-400)
[2018-12-25 06:32] LABS: RED CELL DISTRIBUTION WIDTH 18.7 % (11.5-14.5)
[2018-12-25 06:35] LABS: CALCIUM 7.6 mg/dL (8.5-10.1); CARBON DIOXIDE 23.6 mmol/L (21-32); MAGNESIUM 2.4 mg/dL (1.8-2.4); PHOSPHOROUS 6.9 mg/dL (2.5-4.9); POTASSIUM SERUM 4.7 mmol/L (3.5-5.1)
--- NOTE | 2018-12-25 07:21 | NUR ---
RECEIVED PATIENT FROM CHASSIS INSPECTOR NURSE. PATIENT IS RESTING WITH BOTH EYES CLSOED, AROUSABLE. TELE#1, SR, HR 82. ON ROOM AIR, BREATHING EVEN AND UNLABORED. AV SHUNT NOTED TO LEFT ARM. RIGHT CHEST WALL BLAKE CATH FREE OF REDNESS AND EDEMA. PATIENT RECEIVES HD: [facility],SAT. DRESSING NOTED TO LEFT FOOT, CDI AT THIS TIME. PREVALON BOOT APPLIED TO PATIENT. IV NOTED TO LEFT HAND, SALINE LOCKED, NO S/S REDNESS OR EDEMA. CALL LIGHT WITHIN EASY REACH. WILL CONTINUE PLAN OF CARE.
[2018-12-25 07:28] LABS: CREATININE SERUM 7.7 mg/dL (0.6-1.0)
--- NOTE | 2018-12-25 07:53 | NUR ---
PER DOUGH MOLDER HAND NURSE. PATIENT STATES MORPHINE DOES NOT HELP ENOUGH FOR PAIN. DR GARCIA NOTIFIED VIA [facility]. WILL FOLLOW UP.
--- NOTE | 2018-12-25 09:14 | NUR ---
DR GARCIA RENOTIFIED OF PATIENTS PAIN VIA [facility]. NO RELIEF AFTER IVP MORPHINE. WILL FOLLOW UP.
--- NOTE | 2018-12-25 09:19 | NUR ---
SPOKE WITH DR GARCIA REGARDING PATIENTS PAIN MANAGEMENT. MAKING ROUNDS AND WILL SPEAK WITH PATIENT AT BEDSIDE.
--- NOTE | 2018-12-25 12:09 | NUR ---
PATIENTS BLOOD SUGAR TAKEN AT THIS TIME: 65. PATIENT HAS NO SYMPTOMS OF HYPOGLYCEMIA. DR GARCIA NOTIFIED DUE TO PATIENTS NPO STATUS. DR GARCIA TO CONSULT DR GARCIA IF PATIENT NEEDS TO REMAIN NPO. IF PATIENT REMAINS NPO FLUIDS WILL BE CHANGED PER DR GARCIA. WILL FOLLOW UP.
[2018-12-25 13:15] VITALS: BP 141/69
--- NOTE | 2018-12-25 14:13 | NUR ---
PATIENT AND FAMILY GIVEN DM TEACHING AT THIS TIME.
--- NOTE | 2018-12-25 14:51 | NUR ---
DRESSING CHANGE COMPLETED AT THIS TIME TO LEFT FOOT ORDERED. PATIENT TOLERATED WELL. WILL CONTINUE TO MONITOR.
[2018-12-25 16:59] VITALS: BP 156/70
--- NOTE | 2018-12-25 19:29 | NUR ---
PATIENT RESTING IN BED PEACEFULLY. NO C/O PAIN AT THIS TIME. PATIENT CARE ENDORSED TO INSURANCE PRODUCER NURSEKIRSTIN.
--- NOTE | 2018-12-25 20:29 | NUR ---
PT CURRENTLY RESTING IN BED, NO ACUTE DISTRESS. A/O X4. TELE #1 SHOWING SINUS RHYTHM, DENIES CHEST PAIN. PULSES PALPABLE IN ALL EXTREMITIES, WEAK PEDAL PULSES, NO EDEMA NOTED. LUNG SOUNDS CTA BILATERALLY, DENIES SOB. BOWEL SOUNDS ACTIVE, LAST BM 12/24/18. NAUSEA AND VOMITTING NOTED, MEDICATED PER EMAR. OLIGURIC. LUE AV SHUNT AND RIGHT CHEST BLAKE CATH NOTED. GENERALIZED WEAKNESS, WHEELCHAIR BOUND. RIGHT TOES AND HEAL AMPUTATED. LEFT FOOT DRESSING CDI, BOOT IN PLACE. C/O LEFT FOOT PAIN /10, MEDICATED PER EMAR. IV PATENT AND INTACT. BED IN LOWEST POSITION, SIDE RAILS UP X2, CALL LIGHT WITHIN REACH. WILL CONTINUE TO MONITOR.
[2018-12-25 20:39] VITALS: BP 120/63
--- NOTE | 2018-12-25 21:31 | NUR ---
PT UNABLE TO HAVE MRI DUE TO PACEMAKER, DR CHADWICK INFORMED. WILL CONTINUE TO MONITOR.
--- NOTE | 2018-12-26 00:33 | NUR ---
PT CURRENTLY RESTING IN BED, NO ACUTE DISTRESS. WILL CONTINUE TO MONITOR.
[2018-12-26 05:32] VITALS: BP 154/56
--- NOTE | 2018-12-26 06:08 | NUR ---
PT SLEPT PERIODICALLY THROUGHOUT NIGHT, NO ACUTE DISTRESS. ALL NEEDS MET AND ATTENDED TO. NO SIGNIFICANT CHANGES. IV PATENT AND INTACT. MEDICATED PAIN PER EMAR. BED IN LOWEST POSITION, SIDE RAILS UP X2, CALL LIGHT WITHIN REACH. WILL ENDORSE CARE TO ONOMCING NURSE.
[2018-12-26 06:46] LABS: CALCIUM 7.6 mg/dL (8.5-10.1); CARBON DIOXIDE 20.4 mmol/L (21-32); POTASSIUM SERUM 5.1 mmol/L (3.5-5.1)
[2018-12-26 06:49] LABS: CREATININE SERUM 8.8 mg/dL (0.6-1.0); IRON 21 ug/dL (50-170); TOTAL IRON BINDING CAPACITY 135 ug/dL (250-450)
[2018-12-26 07:30] LABS: MAGNESIUM 2.6 mg/dL (1.8-2.4); PHOSPHOROUS 8.3 mg/dL (2.5-4.9)
[2018-12-26 07:45] LABS: BASOPHIL % 0.2 % (0-2); PLATELET COUNT 206 x10^3mcL (130-400)
--- NOTE | 2018-12-26 08:09 | NUR ---
NOTIFIED BY LAB THAT PATIENTS WBC COUNT IS ELEVATED TO 14.3. CALLED DR GARCIA CELL PHONE, NO ANSWER, LEFT VM. ALSO PAGED DR GARCIA. PRINTED OUT LAB RESULTS AND HANDED TO DR GARCIA IN RESIDENT CLASSROOM. DR GARCIA AWARE. WILL CONTINUE TO MONITOR.
--- NOTE | 2018-12-26 08:46 | NUR ---
PATIENT IN BED RESTING. STATED THAT SHE IS HAVING SEVERE PAIN IN HER L FOOT. NO SIGNS OF SOB. PRN PAIN MEDICATIONS GIVEN IVP. PO MEDICATIONS GIVEN, TOLERATED. CALL LIGHT IN REACH, INFORMED PATIENT TO CALL STAFF FOR ASSISTANCE.
--- NOTE | 2018-12-26 09:00 | NUR ---
PHONED MARICEL JHA TO VERIFY SCHEDULED DIALYSIS FOR PATIENT AT 1200. NO ANSWER, LEFT VM. ALSO SPOKE James PADILLA IN PHARMACY, TO INFORM HIM ONCE PATIENT HAS DIALYSIS TO ADMINISTER VANCOMYCIN.
--- NOTE | 2018-12-26 09:38 | NUR ---
PATIENT TAKEN OFF UNIT FOR STAT CT L FOOT/ANKLE SCAN. TAKEN VIA WHEELCHAIR TO RADIOLOGY W TECH.
[2018-12-26 10:26] VITALS: BP 165/63
--- NOTE | 2018-12-26 11:25 | NUR ---
PATIENT HAS COMPLAINTS OF PAIN. WHEN TRANSFERRING FROM RADIOLOGY, PATIENT L FOOT COLLIDED WITH UNKNWON OBJECT. L FOOT UNDERSIDE BLEEDING, BLEEDING STOPPED. DRESSING W BRIGHT RED BLOOD. GIVEN PRN TYLENOL PO, & PRN ZOFRAN IVP. PO MEDICATIONS GIVEN, TOLERATED. HEMODIALYSIS NURSE IN ROOM, CONSENT SIGNED AND HEMODIALYSIS RUNNING. CALL LIGHT IN REACH, FAMILY AT BEDSIDE.
--- NOTE | 2018-12-26 12:32 | NUR ---
PATIENT IN BED RESTING, ON HEMODIALYSIS TREATMENT. NO SIGNS OF PAIN, NO GRIMACING. FINGERSTICK IS 149, NO COVERAGE NEEDED. PO MEDICATIONS CURRENTL HELD D/T PATIENT NAUSEA AND HD TREATMENT. CALL LIGHT IN REACH, WILL CONTINUE TO MONITOR.
--- NOTE | 2018-12-26 14:24 | NUR ---
MEDICATED PATIENT FOR LT FOOT PAIN, PATIENT LAYING IN BED CRYING. DILAUDID 1MG IVP. NEEDS MET. DIALYSIS STILL IN PROGRESS. CONT TO MONITOR.
[2018-12-26 14:49] VITALS: BP 175/77
--- NOTE | 2018-12-26 16:21 | NUR ---
PATIENT IN BED RESTING. CURRENTLY NO COMPLAINTS OF PAIN. 1X EPISODE OF VOMITTING, DENIES DIZZINESS. PRN ZOFRAN IVP GIVEN, PATIENT TOLERATED. CALL LIGHT IN REACH, FAMILY AT BEDSIDE.
--- NOTE | 2018-12-26 17:00 | NUR ---
OBTAIN CONSENT FOR LEFT LEG ANGIOGRAM WITH ANGIOPLASTY AND STENT PLACEMENT, PATIENT AND DTR (SHAWNEE GIL) WAS INFORM. PER DTR SHAWNEE NO FURTHER QUESTIONS. PATIENT GIVE DTR PERMISSION TO SIGN C/O COLD AND FATIGUE AFTER DIAYLSIS UNABLE TO SIGN.
--- NOTE | 2018-12-26 17:17 | NUR ---
PATIENT IN BED RESTING, DENIES NAUSEA. FAMILY AT BEDSIDE, FINGERSTICK AT 119, NO COVERAGE NEEDED. PATIENT GIVEN PRN NORCO PO, TOLERATED. REFUSING 1700 MEDICATIONS UNTIL SHE EATS. WILL FOLLOW UP ONCE DINNER TRAY HAS ARRIVED. CALL LIGHT IN REACH, BED IN LOWEST POSITION.
[2018-12-26 18:09] VITALS: BP 184/75
--- NOTE | 2018-12-26 18:19 | NUR ---
PATIENT IN BED, FAMILY AT BEDSIDE. FAMILY STATES THAT PATIENT ONLY ATE A LITTLE. SCHEDULED PO MEDICATIONS BOUGHT TO ROOM, ONCE IN ROOM W MEDICATIONS PATIENT STATES THAT SHE IS FEELING NAUSEA. EXPLAINED TO PATIENT THE NEED FOR MEDICATION ADMINISTRATION. PATIENT STILL REFUSED. PRN MEGANFRAN OFFERED AND ADMINISTERED. WILL CONTINUE TO MONITOR. CALL LIGHT IN REACH.
--- NOTE | 2018-12-26 19:50 | NUR ---
RECEIVED PT RESTING IN BED WITH FAMILY AT BEDSIDE. ON TELE #1, SR. WEAK PEDAL PULSES NOTED. PT HAS BLAKE CATH ON R CHEST, AND AV SHUNT ON LEFT ARM. BREATH SOUNDS CTA. ON ROOM AIR. BOWEL SOUNDS ACTIVE. LEFT FOOT WITH DRESSING AND PREVALON BOOT. IV SITE INTACT ON R HAND. WILL CONTINUE TO MONITOR.
[2018-12-26 20:35] VITALS: BP 188/67
--- NOTE | 2018-12-26 21:00 | NUR ---
PT'S BLOOD SUGAR - 152. NOTIFIED DR CHADWICK THAT PT HAS PROCEDURE TOMORROW. DR CHADWICK STATED TO HOLD INSULIN.
--- NOTE | 2018-12-27 03:19 | NUR ---
PT SEEN SLEEPING COMFORTABLY IN BED. BREATHING IS EVEN AND UNLABORED. WILL CONTINUE TO MONITOR.
[2018-12-27 05:28] VITALS: BP 189/69
--- NOTE | 2018-12-27 06:26 | NUR ---
INSERTED NEW IV ON PT'S R HAND. DID DRESSING CHANGE ON PT'S L FOOT WITH BETADINE. PT'S BREATHING IS EVEN AND UNLABORED. NO ACUTE DISTRESS NOTED. 2 IV SITES ON R HAND. SALINE LOCKED. WILL ENDORSE CONTINUITY OF CARE TO DAYSHIFT NURSE.
[2018-12-27 07:01] LABS: BASOPHIL % 0.5 % (0-2); PLATELET COUNT 218 x10^3mcL (130-400)
[2018-12-27 07:04] LABS: CALCIUM 8.1 mg/dL (8.5-10.1); CARBON DIOXIDE 27.3 mmol/L (21-32); CREATININE SERUM 5.5 mg/dL (0.6-1.0); POTASSIUM SERUM 4.3 mmol/L (3.5-5.1)
[2018-12-27 07:05] LABS: RED CELL DISTRIBUTION WIDTH 19.1 % (11.5-14.5)
--- NOTE | 2018-12-27 07:17 | NUR ---
BEDSIDE REPORT AND HANDS OFF GIVEN TO HARIKA.
--- NOTE | 2018-12-27 07:50 | NUR ---
RC'D PT RESTING IN BED WITH NO APPARENT SIGNS OF DISTRESS. A/A/O/X4, SPEECH CLEAR AND APPROPRIATE. DENIES FRANCIS/DIZZIBNESS. ON TELE, DENIES CHEST PAIN/PRESSURE. PALP PULSES, WEAK PEDAL PULSES NOTED. RIGHT CHEST CATH NOTED WITH DRESSING, CDI. SAQIB AV SHUNT, WNL. RESPIRATIONS EQUAL AND UNLABORED. LUNGS CTA. ON RA, DENIES SOBN. ABDOMEN SOFT AND NONTENDER. ACTIVE BS. DENIES N/V. PT VOIDS SMALL AMOUNTS. GENERLAIZED WEAKNESS. LLE DRESSING IN PLACE, CDI. RLE AMPUTATIONS NOTED, PEARL. IV PATENT AND INTACT. BED IN LOW POSITION. CALL LIGHT IN REACH. WILL CONTINUE TO MONITOR
--- NOTE | 2018-12-27 08:56 | NUR ---
PT TAKEN DOWN TO MANAGER RISK MANAGEMENT FOR PROCEDURE. TELE MONITOR NOTIFIED AND MADE AWARE.
[2018-12-27 10:18] VITALS: BP 178/60
[2018-12-27 12:44] VITALS: BP 156/62
--- NOTE | 2018-12-27 13:05 | NUR ---
PT RESTING IN BED WITH NO APPARENT SIGNS OF DISTRESS SLEEPING, VISIBLE RISE/FALL OF CHEST./ FAMILY PRESENT AT BEDSIDE. RIGHT GROIN SITE COVERED WITH TEGADERM, NO REDNESS/TENDERNESS NOTED TO SITE. BED IN LOW POSITION. CALL LIGHT IN REACH. WILL CONTINUE TO MONITOR
--- NOTE | 2018-12-27 13:17 | NUR ---
PHARMACY PAGED REGARDING PROCRIT, PER PHARMACY OKAY TO GIVE TO PT AT THIS TIME, PHARMACY TO BRING.
[2018-12-27 15:30] VITALS: BP 160/59
--- NOTE | 2018-12-27 17:06 | NUR ---
PT RESTING IN BED WITH NO APPARENT SIGNS OF DISTRESS. ON TELE, DENIES CHEST PAIN/PRESSURE. PALP PULSES. RIGHT GROIN TEGADERM NOTED IN PLACE, NO DRAINAGE NOTED. RIGHT GROIN SOFT AND NONTENDER. GENERALIZED WEAKNESS. NO ACUTE SKIN CHANGES NOTED AT THIS TIME. IV PATENT AND INTACT. BED IN LOW POSITION. CALL LIGHT IN REACH. WILL CONTINUE TO MONITOR
[2018-12-27 17:45] VITALS: BP 169/64
--- NOTE | 2018-12-27 18:51 | NUR ---
PAGED [facility] TO NOTIFY THEM OF PT'S PENDING ORDER FOR DIALYSIS FOR TOMORROW; PENDING CALL BACK.
--- NOTE | 2018-12-27 18:53 | NUR ---
MARICEL FROM [facility]UTE [facility] CALLED BACK TO CONFIRM THAT PT WILL BE ON THE LIST FOR TOMORROW FOR DIALYSIS.
--- NOTE | 2018-12-27 19:40 | NUR ---
RECEIVED PT AWAKE, ALERT AND ORIENTED X4, TELE MONITOR IN PL, PT DENIES CHEST DISCOMFORT, PACEMAKER NOTED TO L UPPER CHEST. PT BREATHING IS E/U, DENIES SOB, ON RA. PT ADMITTED FOR L 4TH TOE GANGRENE, DRESSING NOTED TO L 4TH TOE AND FOOT AREA. B/L PREVALON BOOT NOTED TO OFF LOAD HEELS. PT IS S/P L LEG ANGIOGRAM AND BALLOON ANGIOPLASTY, WITH INSERTION SITE TO R GROIN. AREA IS FREE OF BLEEDING/BRUISING. NO PAIN NOTED TO AREA. BLE WARM TO TOUCH,NO SWELLING NOTED. PT IS ALSO ON HD. R BLAKE CATH NOTED AND AV FISTULA WITH STITCHES NOTED TO SAQIB, + BRUIT AND THRILL. NO S/SX OF INFECTION OR BLEEDING NOTED TO BOTH AREAS. ALL SAFETY MEASURES MAINTAINED. FAMILY AT BEDSIDE. CALL LIGHT AND PERSONAL ITEMS IN REACH. WILL CONTINUE TO MONITOR.
[2018-12-27 20:32] VITALS: BP 156/54
--- NOTE | 2018-12-28 00:36 | NUR ---
PT RESTING AT THIS TIME, NO C/O NAUSEA OR PAIN SINCE LAST ADMINISTRATION OF NORCO AND ZOFRAN. BREATHING E/U. SAFETY PRECAUTIONS IN PL. CALL LIGHT IN REACH. WILL CONTINUE TO MONITOR.
--- NOTE | 2018-12-28 03:10 | NUR ---
PT RESTING WITH EYES CLOSED AT THIS TIME, EASILY AROUSABLE TO VERBAL STIMULUS. NO C/O PAIN AT THIS TIME. SAFETY MEASURES MAINTAINED. CALL LIGHT IN REACH. WILL CONTINUE TO MONITOR.
[2018-12-28 06:42] VITALS: BP 169/61
--- NOTE | 2018-12-28 07:05 | NUR ---
PT RESTED INTERMITTENTLY DURING THE NIGHT. NO ACUTE EVENTS OR CHANGES IN CONDITION NOTED DURING THE NIGHT. PT CONTINUES TO HAVE PAIN TO LLE. ALTERNATING BETWEEN NORCO AND DILUADID FOR PAIN MANAGEMENT. ALL OTHER SAFETY MEASURES MAINTAINED. CALL LIGHT IN REACH. WILL ENDORSE CARE TO AM NURSE AND CONTINUE TO MONITOR.
--- NOTE | 2018-12-28 07:30 | NUR ---
RECEIVED PT. IN BED A/A/O X3. NO SOB, NO N/V NOTED. PT. C/O PAIN TO LLE. IV SITE NOTED TO R HAND. BLAKE CATH. NOTED TO R CHEST. AV SHUNT NOTED TO L UPPER ARM. PT. IS ON CONTACT ISOLATION FOR HX. CAP MAKER WOUND. BED IN LOW POS., CALL LIGHT WITHIN REACH. SIDE RAILS UP X3.
[2018-12-28 07:39] LABS: BASOPHIL % 0.4 % (0-2); PLATELET COUNT 225 x10^3mcL (130-400)
[2018-12-28 07:57] LABS: CALCIUM 7.1 mg/dL (8.5-10.1); CARBON DIOXIDE 24.1 mmol/L (21-32); CREATININE SERUM 6.8 mg/dL (0.6-1.0); POTASSIUM SERUM 4.7 mmol/L (3.5-5.1)
[2018-12-28 08:02] LABS: RED CELL DISTRIBUTION WIDTH 18.1 % (11.5-14.5)
[2018-12-28 08:05] VITALS: BP 150/60
[2018-12-28 13:19] VITALS: BP 172/68
--- NOTE | 2018-12-28 14:35 | NUR ---
PT C/O PAIN TO LT FOOT 05/21, MEDICATED WITH NORCO PO ORDERED.
--- NOTE | 2018-12-28 15:24 | NUR ---
NEW IV SITE RESTARTED AT R FA WITH GAUGE #22 DUE TO INFILTRATION OF OLD IV SITE.
--- NOTE | 2018-12-28 15:27 | NUR ---
CLEANSED L 4TH TOE AND L HEEL WITH BETADINE-SOAKED GAUZE. DRY DRESSING APPLIED TO WOUND SITES BEFORE WRAPPING WITH KURLIX DRESSING. WOUNDS APPEAR DRY AND BLACK. NO DRAINAGE NOTED AT WOUND SITES.
--- NOTE | 2018-12-28 16:30 | NUR ---
H/D NURSE AT BEDSIDE TO PREPARE PT. FOR HEMODIALYSIS.
[2018-12-28 16:46] VITALS: BP 166/73
--- NOTE | 2018-12-28 18:13 | NUR ---
REMAINS IN STABLE CONDITION AT THIS TIME. HEMODIALYSIS IS STILL ON-GOING. WILL CONTINUE TO MONITOR.
--- NOTE | 2018-12-28 19:20 | NUR ---
RECEIVED PT IN BED AWAKE, ALERT,ORIENTED X4 W/ DAUGHTER AND HD NURSE AT BEDSIDE. HEMODIALYSIS IN PROGRESS .PT W/ NO SOB AT THIS TIME. NO C/O ABDL DISCOMFORT. W/ HD CATH TO RT UPPER CHEST. W/ AV SHUNT TO LT UPPER ARM BUT NON-FUNCTIONING. PT HAS EDEMA NOTED TO RT HAND (PREVIOUS IV SITE). DRESSING TO LT FOOT CDI. W/ RT FOOT TOES AMPUTATED. PT HAS HL TO RTFA. CALL LIGHT W/IN REACH.
--- NOTE | 2018-12-28 19:30 | NUR ---
HEMODIALYSIS COMPLETED W/ 2.6 L OUT. PT IN STABLE CONDITION AT THIS TIME.
--- NOTE | 2018-12-28 19:45 | NUR ---
PT C/O PAIN TO LT FOOT 07/22. NORCO 7.5/325 MG PO GIVEN.
[2018-12-28 21:22] VITALS: BP 148/54
--- NOTE | 2018-12-28 21:53 | NUR ---
PT MEDICATED W/ DILAUDID 1 MG IV FOR C/O PAIN TO LT FOOT 07/22.
--- NOTE | 2018-12-28 22:54 | NUR ---
PT C/O N/V. ZOFRAN 4 MG IV GIVEN.
--- NOTE | 2018-12-29 01:05 | NUR ---
PT APPEARS TO BE SLEEPING COMFORTABLY. BREATHING IS EVEN AND UNLABORED.
--- NOTE | 2018-12-29 05:34 | NUR ---
PT MEDICATED W/ DILAUDID 1 MG IV FOR C/O PAIN TO LT FOOT 07/22.
--- NOTE | 2018-12-29 07:25 | NUR ---
RECEIVED PT. IN BED SLEEPING. PT. CAN BE AROUSED EASILY. NO SOB, NO N/V NOTED. PT. STILL C/O ON AND OFF PAIN AT LLE. PT. IS ON CONTACT ISOLATION FOR HX. ROUTE CONTRACTOR WOUND. IV SITE NOTED TO R FA. BLAKE CATH. NOTED TO R CHEST. AV SHUNT NOTED TO L UPPER ARM. PREVALON BOOTS TO FRANKIE. HEELS MAINTAINED. BED IN LOW POS., CALL LIGHT WITHIN REACH. SIDE RAILS UP X3.
[2018-12-29 07:31] LABS: BASOPHIL % 0.3 % (0-2); PLATELET COUNT 231 x10^3mcL (130-400)
[2018-12-29 07:39] LABS: RED CELL DISTRIBUTION WIDTH 18.4 % (11.5-14.5)
[2018-12-29 07:51] LABS: CALCIUM 7.9 mg/dL (8.5-10.1); MAGNESIUM 1.9 mg/dL (1.8-2.4); PHOSPHOROUS 4.6 mg/dL (2.5-4.9); POTASSIUM SERUM 4.5 mmol/L (3.5-5.1)
[2018-12-29 07:52] LABS: CREATININE SERUM 4.7 mg/dL (0.6-1.0)
[2018-12-29 09:02] VITALS: BP 156/54
[2018-12-29 12:29] VITALS: BP 133/52
--- NOTE | 2018-12-29 13:55 | NUR ---
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 Ht:62in, 5'2" Wt:136#, 61.744kg BMI: 24.9kg/m2 (normal) IBW:110#, 50kg %IBW:124% UBW:56kg dialysis post weight Age: 63 y/o male Food Allergies:NKFA Skin: left 4th toe amputation, dry intact with dressing covering foot. Bob: 17 Edema: to right hand GI: Last BM: none noted since 12/25 Pt admitted with left foot pain x 1 week. Pt did not finish dialysis due to pain, per H&P. Per progress note 12/29, plan is to continue IV abtibiotics , dressing change, adjust antibiotic dose per eGFR, continue fluid restriction to optimize volume status and monitor labs (renal and electrolytes). During visit, pt was seen laying in bed with lunch 50% eaten. Pt's daughter and were at bedside. Pt's daughter translated. Pt with nausea and emesis x4 today and with c/o constipation. Spoke to CARMELO Soot who reports pt was given Colace but needs to be given a stronger medication. Offered pt Nepro supplement but pt declined. Problem with: N/V/C:Yes D: No Problems with: Chewing:/Swallowing: No Current appetite: Poor Recent wt change:varies due to dialysis %wt change:N/A Vitamin/Supplement use:Nephrovite Special diet at home:Renal/CCHO Physical activity: no, ambulates with wheelchair Education: pt received diet education from previous admit and reports to being familiar with renal CCHO diet. Estimated Nutritional Needs Based on ideal body weight 50kg Energy: 1500-1750kcal/d (30-35kcal/kg for ESRD on HD) Protein: 60-70g/d (1.2-1.4g/kg for ESRD on HD) Fluid:1L +urine output or per doctor Nutrition Diagnosis 1. Inadequate protein/energy intake related to poor appetite secondary to emesis x 4 as evidenced by PO intake 35% x 5 meals. 2. Altered GI function related to possibly pain medication as evidenced by no BM x 5 days. Intervention 1. Recommend change diet to renal due to to pt with ESRD on HD. 2.Recommend adjusting BM regimen due to pt with no BM since admit. Monitor/Evaluate Goal: PO intake at least 75% of estimated needs Monitor: PO intake, Labs, GI function F/U in 3-5 days as moderate risk:01/01-
--- NOTE | 2018-12-29 13:55 | NUR ---
1.Recommend change diet to renal due to to pt with ESRD on HD. 2.Recommend adjusting BM regimen due to pt with no BM since admit.
--- NOTE | 2018-12-29 14:25 | NUR ---
PT.'S LAST BOWEL MOVEMENT WAS ON 12/24/18. MILK OF MAGNESIA 30 CC PO GIVEN ORDERED.
--- NOTE | 2018-12-29 14:37 | NUR ---
C/O FEELING NAUSEATED. ZOFRAN 4MG IV GIVEN.
[2018-12-29 17:22] VITALS: BP 172/65
[2018-12-29 17:59] VITALS: BP 156/55
--- NOTE | 2018-12-29 18:01 | NUR ---
REMAINS IN STABLE CONDITION AT THIS TIME. WILL CONTINUE TO MONITOR.
--- NOTE | 2018-12-29 20:07 | NUR ---
SHIFT REASSESSMENT DONE.PATIENT ALERT AND ORIENTED.MAINLY GREENLANDIC,NEEDS ANTICIPATED.FAMILY WAS HERE,SUPPORTIVE OF CARE.BREATHING EASY.ALL R FOOT TOES AMUTATED.USES WHEELCAHIR AT HOME.TELE 1 SR.L 4TH TOE GANGRENE.L HEEL GANGRENOUS PER REPORT.WILL TAKE PICTURE IN AM AFTER MIDNIGHT.PICTUR DAY.HD PATIENT T TH SAT.WILL GIVE PAIN MED PRN.CALL LIGHT IN REACH.CONTACT ISOLATION MAINTAINED.CALLLIGHT IN REACH.
[2018-12-29 20:34] VITALS: BP 147/62
[2018-12-30 05:39] VITALS: BP 157/49
[2018-12-30 06:02] LABS: BASOPHIL % 0.5 % (0-2); PLATELET COUNT 222 x10^3mcL (130-400)
--- NOTE | 2018-12-30 06:08 | NUR ---
PICTURES ON AFFECTED SITE IN PLACE.I AND O MEASURED.HEPLOCK INTACT.WILL ENDORSE TO NEXT SHIFT.REMAINS ON CONTACT ISOLATION.WILL ENDORSE TO NEXT SHIFT.
[2018-12-30 06:30] LABS: CALCIUM 7.6 mg/dL (8.5-10.1); CARBON DIOXIDE 24.1 mmol/L (21-32)
[2018-12-30 06:40] LABS: RED CELL DISTRIBUTION WIDTH 18.4 % (11.5-14.5)
[2018-12-30 07:08] LABS: CREATININE SERUM 5.9 mg/dL (0.6-1.0)
--- NOTE | 2018-12-30 07:40 | NUR ---
PT IS AAOX4, FOLLOWS COMMANDS. DENIES H/A OR DIZZINESS. RESP EVEN AND UNLABORED. LUNG SOUNDS CTA, ON R/A. TELE [address] READING NSR. PT HAS PACEMAKER AND IS PACED ON DEMAND. ABDOMEN SOFT, NONTENDER, NONDISTENDED. PT HAS AV FISUTULA TO SAQIB, PEARL WITH 2 EXISTING STICHES. SITE WNL, NO S/S OF INFECTION NOTED. PT HAS R FOOT TOES AMPUTATED. SITE HEALED AND PEARL. NO S/S OF INFECTION NOTED. PT HAS L HEAL WOUNDS AND 4TH L TOE GANGRENEOUS, SITE BRIDAL CONSULTANT. PT HAS R CHEST BLAKE CATH USED FOR DIALYSIS ACCESS, SITE COVERED WITH CDI DRESSING, NO S/S OF INFECTION NOTED. IV CATH TO RFA N/S LOCKED, SITE WNL. BED IN LOW POSITION. PT ABLE AND ENCOURAGED TO TURN AND REPOSITION IN BED EVERY 2 HOURS. PT VERBALIZED UNDERSTANDING. CALL LIGHT WITHIN REACH.
[2018-12-30 09:03] VITALS: BP 164/60
--- NOTE | 2018-12-30 10:00 | NUR ---
DUE MEDS GIVEN. DILAUDID 1MG IVP GIVEN FOR L LEG PAIN 07/22. L LEG REMAINS ELEVATED. PT REPOSITIONED FOR COMFORT. BED IN LOW POSITION. CALL LIGHT WITHIN REACH.
--- NOTE | 2018-12-30 10:49 | NUR ---
NORCO GIVEN FOR LEFT FOOT PAIN 05/21. RESP EVEN AND UNLABORED. NO RESP DISTRESS NOTED. FLUIDS ENCOURAGED. CALL LIGHT LINDEN LEE.
--- NOTE | 2018-12-30 10:50 | NUR ---
NORCO PO GIVEN FOR L LEG PAIN 05/21. RESP EVEN AND UNLABORED. NO RESP DISTRESS NOTED. FLUIDS ENCOURAGED. LEG REPOSITIONED FOR COMFORT.
[2018-12-30 12:44] VITALS: BP 145/63
--- NOTE | 2018-12-30 13:45 | NUR ---
DILAUDID 1MG IVP GIVEN FOR THROBBING PAIN 05/21. RESP EVEN AND UNLABORED. NO RESP DISTRESS NOTED. CALL LIGHT WITHIN REACH.
--- NOTE | 2018-12-30 14:50 | NUR ---
CONTACTED ABHIJEET CONNELLY THAT PATIENT REQUIRES HD ON 12/31/18. ABHIJEET CONNELLY CONFIRMED REQUEST.
--- NOTE | 2018-12-30 15:52 | NUR ---
PT IS SITTING UP AT BEDSIDE WATCHING SHOW ON P/C. RESP EVEN AND UNLABORED. PT DENIES PAIN OR DISCOMFORT. NO DISTRESS NOTED. CALL LIGHT WITHIN REACH.
[2018-12-30 16:45] VITALS: BP 152/58
--- NOTE | 2018-12-30 18:29 | NUR ---
PT IS AAOX4. RESP EVEN AND UNLABORED. TELE [address] READING NSR PACED ON DEMAND. PT DENIES PAIN AND DISCOMFORT. NO DISTRESS NOTED. IV CATH TO RFA, N/S LOCKED, PATENT, SITE WNL. BED IN LOW POSITION. CALL LIGHT WITHIN REACH. WILL ENDORSE ALL CARE TO NOC RN.
--- NOTE | 2018-12-30 19:10 | NUR ---
RECEIVED PT SITTING AT THE EDGE OF THE BED.[id number].BREATHING EVEN AND UNLABORED.DENIES ANY PAIN AT THIS TIME. NO NAUSEA AND VOMITING NOTED.NOTICED 4TH TOE GANGRENE AND LEFT HEEL WITH DRESSING.AV SHUNT TO SAQIB. BLAKE CATH TO RIGHT CHEST USED FOR HD.BED IN LOWEST POSITION,CALL LIGHT WITHIN REACH. WILL CONTINUE TO MONITOR.
--- NOTE | 2018-12-30 21:54 | NUR ---
PT C/O NAUSEA. MEDICATED ZOFRAN 4MG ORDERED. WILL CONTINUE TO MONITOR.
--- NOTE | 2018-12-31 01:10 | NUR ---
PT C/O LEFT LEG PAIN 05/21. MEDICATED NORCO 7.5/325MG ORDERED. WILL CONTINUE TO MONITOR.
--- NOTE | 2018-12-31 04:50 | NUR ---
PT APPEARS TO BE SLEEPING. NO DISTRESS NOTED. DENIES ANY PAIN AT THIS TIME. BED IN LOWEST POSITION,CALL LIGHT WITHIN REACH. WILL CONTINUE TO MONITOR.
[2018-12-31 05:55] VITALS: BP 135/45
[2018-12-31 07:03] LABS: BASOPHIL % 0.4 % (0-2); PLATELET COUNT 229 x10^3mcL (130-400)
[2018-12-31 07:18] LABS: CALCIUM 7.8 mg/dL (8.5-10.1); CARBON DIOXIDE 24.9 mmol/L (21-32); POTASSIUM SERUM 5.1 mmol/L (3.5-5.1)
[2018-12-31 07:26] LABS: CREATININE SERUM 6.8 mg/dL (0.6-1.0)
--- NOTE | 2018-12-31 07:28 | NUR ---
PT IS ON CONTACT ISOLATION FOR HX OF WOUND CULTURE POSITIVE. PT BREATHING ON RA, EVEN, UNLABORED. NO COMPLAIN OF PAIN AT THIS TIME. L FOOT WRAPPED WITH KELEX, CDI. R FOOT TOES AMPUTATION. R UPPER CHEST [place] CATH FOR DIALYSIS. L ARM AV SHUNT NOT READY FOR HD. IV SITE SALINE LOCK AT THIS TIME. WILL CONTINUE TO MONITOR.
--- NOTE | 2018-12-31 07:40 | NUR ---
CARE ENDORSED TO DAY NURSE
--- NOTE | 2018-12-31 08:54 | NUR ---
HD NURSE AT BED SIDE AND START HD. HOLD PT'S MORNING MEDS AT THIS TIME. PT COMPLAIN OF PAIN, NORCO GIVEN PER PRN ORDER.
[2018-12-31 09:42] VITALS: BP 161/59
[2018-12-31] MEDS ORDERED: VANCO 1 GR1 GM/150 M IV (09:52)
[2018-12-31] MEDS ORDERED: NOVAPLUS ZOSYN50 M1 IV (09:52)
[2018-12-31 13:19] VITALS: BP 165/58
[2018-12-31 13:27] VITALS: BP 165/58
--- NOTE | 2018-12-31 13:39 | NUR ---
HD DONE, 2L OUT. PT COMPLAIN OF PAIN ON LEFT FOOT, DILAUDID GIVEN PER PRN ORDER. PT'S DAUGHTER AT BED SIDE. THEY ARE AWARE ABOUT PT IS GOING TO TRANSFER TO SNF FOR CONTINUE ANTIBIOTICS.
--- NOTE | 2018-12-31 15:00 | NUR ---
PT'S DAUGHTER AT BED SIDE AND HELP TRANSLATE TO PT ABOUT HER TRANSFER CARE PLAN. DISCHARGE INSTRUCTION GIVEN. DISCHARGE AND TRANSFER DOCUMENT SIGNED BY PT. WILL PROVIDE DRESSING CHANGE PRIOR TRANSFER.
[2018-12-31 16:38] VITALS: BP 133/62
--- NOTE | 2018-12-31 16:56 | NUR ---
REPORT GIVEN TO RECEIVING FACILITY NURSE IGNACIO. QUESTION AND CONCERNS ANSWERED. PT'S WOUND PHOTO AND DRESSING CHANGED PER ORDER. PT'S DAUGHTER AT BED SIDE. WILL GET PT READY FOR TRANSFER.
--- NOTE | 2018-12-31 17:05 | NUR ---
PATIENT ON DIALYSIS, COULD NOT BE SEEN FOR PHYSICAL THERAPY
--- NOTE | 2018-12-31 17:47 | NUR ---
PT STILL WAITING FOR PAIN MANAGEMENT NURSE PRACTITIONER. PT'S DAUGHTER AT BED SIDE. PT COMPLAIN OF PAIN, DILAUDID GIVEN PER PRN ORDER. NO DISTRESSED NOTED AT THIS TIME.
--- NOTE | 2018-12-31 18:37 | NUR ---
CALLED TRANSPORTATION COMPANY, NURSING TEACHER WILL ARRIVE AT 1900 PM. PT'S DAUGHTER AT BED SIDE.
--- NOTE | 2018-12-31 19:15 | NUR ---
TRANSPORTATION ARRIVE. PT'S DAUGTER AT BED SIDE. WILL FOLLOW THE TRANSPORTATION TO SNF. PT LEFT WITHOUT DISTRESSED NOTED. ID BAND AND TELE MONITOR REMOVED.
--- NOTE | 2019-01-02 07:40 | NUR ---
LATE ENTRY: 12/31/2018 1030 WOUND CARE TREATMENT DISCUSSED WITH PRIMARY RN, PT WAS SEEN BY PODIATRY ON 12/24/2018. WOUND CARE TREATMENT ORDERS AND INSTRUCTIONS REVIEWED WITH PRIMARY RN, ORDERS WAS PLACE UNDER NURSING ADDITION ORDERS BY STOREKEEPER HELPER, WILL CONTINUE TO FOLLOW THE SAME ORDER.
== END 2018-12-31 20:15 | DRG 853 ==
LOC: ED 12:25 → DU 15:36
PROVIDERS: Emergency Medicine; Internal Medicine Nephrology; Surgery; ADMIT Family Medicine
PROC: B41GZZZ Fluoroscopy of Left Lower Extremity Arteries (ICD-10-PCS; 2018-12-27)
PROC: 047Q3ZZ Dilation of Left Anterior Tibial Artery, Percutaneous Approach (ICD-10-PCS; principal; 2018-12-27 09:30)
PROC: 047N3ZZ Dilation of Left Popliteal Artery, Percutaneous Approach (ICD-10-PCS; 2018-12-27 09:30)
DX: A41.9 Sepsis, unspecified organism (principal); E43 Unspecified severe protein-calorie malnutrition; N18.6 End stage renal disease; I12.0 Hypertensive chronic kidney disease with stage 5 chronic kidney disease or end stage renal disease; E11.52 Type 2 diabetes mellitus with diabetic peripheral angiopathy with gangrene; M86.9 Osteomyelitis, unspecified; I96 Gangrene, not elsewhere classified; E11.69 Type 2 diabetes mellitus with other specified complication; E11.42 Type 2 diabetes mellitus with diabetic polyneuropathy; E11.22 Type 2 diabetes mellitus with diabetic chronic kidney disease; E78.00 Pure hypercholesterolemia, unspecified; Z95.0 Presence of cardiac pacemaker; Z79.84 Long term (current) use of oral hypoglycemic drugs
CPT/HCPCS: CLAIF; 82962; 83880; C1760; C1769; C1887; C1894; J0295; J0885-EC; J1170; J1200; J1644; J2001; J2250; J2270; J2310; J2405; J2543; J3010; J3370; J3490; J7030; Q0092; Q9967

== ENCOUNTER 2019-01-06 09:47 | Emergency (ER) | payer OTHER, MEDICAID ==
[~2019-01-06] VITALS: Ht 157.5 cm; Wt 51.7 kg
[~2019-01-06 09:47] MED LIST changes: +AMOXICILLIN500 M1; +CRESTOR10 M1 PO; +MUCINEX600 MG PO; +OMEPRAZOLE40 M1 PO; +PREDNISONE10 MG PO; +PREMARIN0.625 MG PO; +PROAIR RES117 MCG/Ac IH; +RANITIDINE HCL300 M3 PO; +SPACE CHAMBER1 EACH MC; +TOPROL XL25 MG PO; +TYLENOL WITH CO1 TA2 PO; +VANCO 1 GR1 GM/150 M IV
[2019-01-06 09:57] VITALS: Ht 157.5 cm; Wt 51.7 kg
[2019-01-06 12:50] VITALS: BP 135/81
== END 2019-01-06 12:51 | disposition home or self-care (01) ==
LOC: ED 09:47
DX: K59.00 Constipation, unspecified (principal); I10 Essential (primary) hypertension; E11.9 Type 2 diabetes mellitus without complications; E11.22 Type 2 diabetes mellitus with diabetic chronic kidney disease; I12.0 Hypertensive chronic kidney disease with stage 5 chronic kidney disease or end stage renal disease; N18.6 End stage renal disease; E78.00 Pure hypercholesterolemia, unspecified; Z95.0 Presence of cardiac pacemaker; Z99.2 Dependence on renal dialysis; Z98.890 Other specified postprocedural states

== ENCOUNTER 2019-04-14 19:57 | Inpatient (IN) | payer OTHER, MEDICAID ==
[~2019-04-14] VITALS: Ht 157.5 cm; Wt 64.0 kg
[2019-04-14 20:12] VITALS: Ht 157.5 cm; Wt 64.0 kg
[2019-04-14 21:50] LABS: BASOPHIL % 0.4 % (0-2); PLATELET COUNT 258 x10^3mcL (130-400)
[2019-04-14 21:52] LABS: RED CELL DISTRIBUTION WIDTH 16.9 % (11.5-14.5)
[2019-04-14 22:03] LABS: BILIRUBIN TOTAL 0.26 mg/dL (0.20-1.00); CALCIUM 7.8 mg/dL (8.5-10.1); CARBON DIOXIDE 27.4 mmol/L (21-32)
[2019-04-14 22:18] LABS: ALBUMIN 2.2 g/dL (3.4-5.0); CREATININE SERUM 8.4 mg/dL (0.6-1.0); POTASSIUM SERUM 7.1 mmol/L (3.5-5.1)
[2019-04-14 22:45] LABS: ERYTHROCYTE SED RATE 95 mm/hr (0-30)
[2019-04-14] MEDS ORDERED: SENNA8.6 M2 PO (23:30)
[2019-04-14] MEDS ORDERED: VITAMIN C500 M6 PO (23:31)
[2019-04-14] MEDS ORDERED: MULTI-VITAMINS1 TAB PO (23:31)
[2019-04-14] MEDS ORDERED: ZINC SULFATE220 MG PO (23:32)
[2019-04-14] MEDS ORDERED: HYDRALAZINE HCL25 MG PO (23:32)
[2019-04-14] MEDS ORDERED: CLINDAMYCIN HC300 MG PO (23:32)
[2019-04-15 00:47] VITALS: BP 201/72
[2019-04-15 06:17] LABS: BASOPHIL % 0.5 % (0-2); PLATELET COUNT 236 x10^3mcL (130-400)
[2019-04-15 07:36] LABS: CALCIUM 7.3 mg/dL (8.5-10.1); CARBON DIOXIDE 24.3 mmol/L (21-32); POTASSIUM SERUM 6.9 mmol/L (3.5-5.1)
[2019-04-15 07:37] LABS: CREATININE SERUM 8.9 mg/dL (0.6-1.0)
[2019-04-15 08:15] LABS: CHOLESTEROL/HDL RATIO 2.5; MAGNESIUM 2.3 mg/dL (1.8-2.4); PHOSPHOROUS 7.5 mg/dL (2.5-4.9)
[2019-04-15 08:48] VITALS: BP 130/60
[2019-04-15 12:23] VITALS: BP 113/45
[2019-04-15 17:42] VITALS: BP 128/53
[2019-04-15 21:11] VITALS: BP 181/73
[2019-04-16 05:28] VITALS: BP 167/54
[2019-04-16 06:33] LABS: IRON 29 ug/dL (50-170); TOTAL IRON BINDING CAPACITY 180 ug/dL (250-450)
[2019-04-16 06:52] LABS: CALCIUM 7.8 mg/dL (8.5-10.1); CARBON DIOXIDE 25.1 mmol/L (21-32); PHOSPHOROUS 6.3 mg/dL (2.5-4.9); POTASSIUM SERUM 5.2 mmol/L (3.5-5.1)
[2019-04-16 06:53] LABS: CREATININE SERUM 5.7 mg/dL (0.6-1.0)
[2019-04-16 07:00] LABS: BASOPHIL % 0.8 % (0-2); PLATELET COUNT 218 x10^3mcL (130-400)
[2019-04-16 07:15] LABS: RED CELL DISTRIBUTION WIDTH 17.9 % (11.5-14.5)
[2019-04-16 10:31] VITALS: BP 134/58
[2019-04-16 12:59] VITALS: BP 134/51
[2019-04-16 17:45] VITALS: BP 114/60
[2019-04-16 19:35] VITALS: BP 162/60
[2019-04-17 05:41] VITALS: BP 127/45
[2019-04-17 06:42] LABS: CALCIUM 7.1 mg/dL (8.5-10.1); PHOSPHOROUS 6.8 mg/dL (2.5-4.9)
[2019-04-17 07:19] LABS: BASOPHIL % 0.6 % (0-2); PLATELET COUNT 195 x10^3mcL (130-400)
[2019-04-17 08:02] LABS: RED CELL DISTRIBUTION WIDTH 17.6 % (11.5-14.5)
[2019-04-17 08:13] LABS: CREATININE SERUM 7.7 mg/dL (0.6-1.0); POTASSIUM SERUM 5.9 mmol/L (3.5-5.1)
[2019-04-17 08:56] VITALS: BP 163/63
[2019-04-17 12:40] VITALS: BP 154/58
[2019-04-17 14:58] LABS: BASOPHIL % 0.8 % (0-2); PLATELET COUNT 210 x10^3mcL (130-400); RED CELL DISTRIBUTION WIDTH 18.5 % (11.5-14.5)
[2019-04-17 15:07] LABS: CALCIUM 7.9 mg/dL (8.5-10.1); CARBON DIOXIDE 27.7 mmol/L (21-32); POTASSIUM SERUM 3.8 mmol/L (3.5-5.1)
[2019-04-17 17:12] VITALS: BP 132/48
[2019-04-17 19:20] VITALS: BP 176/64
[2019-04-18 01:09] VITALS: BP 128/50
[2019-04-18 06:10] VITALS: BP 148/56
[2019-04-18 06:51] LABS: BASOPHIL % 0.5 % (0-2); PLATELET COUNT 183 x10^3mcL (130-400)
[2019-04-18 06:57] LABS: CALCIUM 7.4 mg/dL (8.5-10.1); CARBON DIOXIDE 25.3 mmol/L (21-32); MAGNESIUM 2.1 mg/dL (1.8-2.4); PHOSPHOROUS 5.7 mg/dL (2.5-4.9)
[2019-04-18 08:33] LABS: RED CELL DISTRIBUTION WIDTH 17.8 % (11.5-14.5)
[2019-04-18 09:39] VITALS: BP 172/60
[2019-04-18 16:39] VITALS: BP 134/54
[2019-04-18] MEDS ORDERED: AUGMENTIN1 TA1 PO (16:39)
[2019-04-18] MEDS ORDERED: BACTRIM DS1 TAB PO (16:40)
[2019-04-18] MEDS ORDERED: NEU300 PO (17:08)
[2019-04-18 18:19] VITALS: BP 134/54
== END 2019-04-18 19:20 | disposition home or self-care (01) | DRG 637 ==
LOC: ED 19:57 → DU 22:47 → MU 22:47 → DU 23:58 → MU 04-17 12:41
PROVIDERS: Anesthesiology; Emergency Medicine; Family Medicine; Internal Medicine Nephrology; ADMIT Internal Medicine
PROC: 05HN33Z Insertion of Infusion Device into Left Internal Jugular Vein, Percutaneous Approach (ICD-10-PCS; principal; 2019-04-15)
PROC: B544ZZA Ultrasonography of Left Jugular Veins, Guidance (ICD-10-PCS; 2019-04-15)
DX: E11.621 Type 2 diabetes mellitus with foot ulcer (principal); E43 Unspecified severe protein-calorie malnutrition; I12.0 Hypertensive chronic kidney disease with stage 5 chronic kidney disease or end stage renal disease; L97.421 Non-pressure chronic ulcer of left heel and midfoot limited to breakdown of skin; E87.1 Hypo-osmolality and hyponatremia; N18.6 End stage renal disease; N17.0 Acute kidney failure with tubular necrosis; E11.22 Type 2 diabetes mellitus with diabetic chronic kidney disease; E11.65 Type 2 diabetes mellitus with hyperglycemia; E87.5 Hyperkalemia; E78.5 Hyperlipidemia, unspecified; E83.51 Hypocalcemia; Z95.0 Presence of cardiac pacemaker; Z89.422 Acquired absence of other left toe(s); Z68.22 Body mass index [BMI] 22.0-22.9, adult; Z79.84 Long term (current) use of oral hypoglycemic drugs
CPT/HCPCS: 82962; J0610; J1642; J1644; J1815; J2001; J2270; J2405; J2543; J2916; J3010; J3370; J7030; J7050; J7613; Q0092

== ENCOUNTER 2019-04-21 20:39 | Emergency (ER) | payer OTHER, MEDICAID ==
[~2019-04-21] VITALS: Ht 157.5 cm; Wt 52.6 kg
[~2019-04-21 20:39] MED LIST changes: +AUGMENTIN1 TA1 PO; +HYDRALAZINE HCL25 MG PO; +MULTI-VITAMINS1 TAB PO; +SENNA8.6 M2 PO; +VITAMIN C500 M6 PO; +ZINC SULFATE220 MG PO
[2019-04-21 21:19] VITALS: BP 152/71; Ht 157.5 cm; Wt 52.6 kg
== END 2019-04-21 23:36 | disposition home or self-care (01) ==
LOC: ED 20:39
DX: L97.429 Non-pressure chronic ulcer of left heel and midfoot with unspecified severity (principal); I10 Essential (primary) hypertension; E11.40 Type 2 diabetes mellitus with diabetic neuropathy, unspecified; Z99.2 Dependence on renal dialysis; Z89.421 Acquired absence of other right toe(s)
CPT/HCPCS: Q0092

== ENCOUNTER 2019-06-27 10:29 | Emergency (ER) | payer OTHER, MEDICAID ==
[~2019-06-27] VITALS: Ht 157.5 cm; Wt 52.8 kg
[2019-06-27 10:35] VITALS: Ht 157.5 cm; Wt 52.8 kg
[2019-06-27 11:56] LABS: BASOPHIL % 0.8 % (0-2); PLATELET COUNT 252 x10^3mcL (130-400)
[2019-06-27 11:58] LABS: RED CELL DISTRIBUTION WIDTH 15.4 % (11.5-14.5)
[2019-06-27 12:08] LABS: BILIRUBIN TOTAL 0.4 mg/dL (0.20-1.00); CARBON DIOXIDE 31.8 mmol/L (21-32); POTASSIUM SERUM 4.4 mmol/L (3.5-5.1)
[2019-06-27 12:09] LABS: ALBUMIN 2.8 g/dL (3.4-5.0)
[2019-06-27 12:10] LABS: CREATININE SERUM 6.7 mg/dL (0.6-1.0)
[2019-06-27 15:05] VITALS: BP 171/54
== END 2019-06-27 15:48 | disposition home or self-care (01) ==
LOC: ED 10:29
PROVIDERS: Emergency Medicine
DX: I12.0 Hypertensive chronic kidney disease with stage 5 chronic kidney disease or end stage renal disease (principal); E11.22 Type 2 diabetes mellitus with diabetic chronic kidney disease; N18.6 End stage renal disease; E11.621 Type 2 diabetes mellitus with foot ulcer; L97.529 Non-pressure chronic ulcer of other part of left foot with unspecified severity; R11.2 Nausea with vomiting, unspecified; Z99.2 Dependence on renal dialysis; E11.40 Type 2 diabetes mellitus with diabetic neuropathy, unspecified; Z98.890 Other specified postprocedural states
CPT/HCPCS: 36415; Q0162